=== PATIENT | male | born 1960 | race Caucasian/White ===

== ENCOUNTER 2017-01-29 10:18 | Observation (INO) | payer BC ==
[2017-01-29] MEDS ORDERED: NS 0.9% 1000 ML* 1,000 ML IV ONE (10:40)
[2017-01-29 11:05] LABS: Hematocrit 50 % (42-52); Hemoglobin 16.6 g/dl (14.0-18.0); Mean Corpuscular HGB Conc 34 g/dl (31-36); Mean Corpuscular Hemoglobin 32 pg (27-31); Mean Corpuscular Volume 94 fL (80-94); Mean Platelet Volume 9 um3 (7.4-10.4); Red Blood Count 5.25 10^6/ul (4.0-5.4); Red Cell Distribution Width 14 % (10.5-15); White Blood Count 7.2 10^3/ul (3.5-10.8)
[2017-01-29] MEDS ORDERED: Aspirin Low Dose CHEW TAB* 81 MG PO ONE (11:17)
[2017-01-29 11:22] LABS: ALT 31 U/L (7-52); AST 20 U/L (13-39); Albumin 4.2 g/dL (3.2-5.2); Alkaline Phosphatase 54 U/L (34-104); Anion Gap 5 mmol/L (2-11); BUN/Creatinine Ratio 14.7 (8-20); Blood Urea Nitrogen 17 mg/dL (6-24); C Reactive Protein < 1.00 mg/L (< 5.00); CO2 Carbon Dioxide 29 mmol/L (22-32); Calcium 9.8 mg/dL (8.6-10.3); Chloride 104 mmol/L (101-111); Creatine Kinase 85 U/L (10-223); EGFR African American 83.8 (>60); EGFR Non-African American 65.1 (>60); Globulin 3.2 g/dL (2-4); Glucose 96 mg/dL (70-100); Lipase 37 U/L (11.0-82.0); Magnesium 2.3 mg/dL (1.9-2.7); Potassium 4.6 mmol/L (3.5-5.0); Sodium 138 mmol/L (133-145); Total Protein 7.4 g/dL (6.4-8.9)
[2017-01-29 11:31] LABS: Troponin I 0.08 ng/mL (<0.04)
--- NOTE | 2017-01-29 11:42 | RAD ---
INDICATION: Tachycardia COMPARISON: April 24, 2016 TECHNIQUE: An AP portable view obtained at 1120 hours is submitted. FINDINGS: Bones/Soft Tissues: There are no acute bony findings. Cardiomediastinal: The cardiomediastinal silhouette is normal. Lungs: There are no infiltrates. Pleura: There are no pleural effusions. Other: None IMPRESSION: NO ACTIVE DISEASE.
[2017-01-29 12:37] LABS: Urine Bacteria Absent (Absent); Urine Bilirubin Negative (Negative); Urine Glucose Negative (Negative); Urine Nitrite Negative (Negative)
[2017-01-29] MEDS ORDERED: Acetaminophen TAB* 325 MG PO PRN (13:04)
[2017-01-29] MEDS ORDERED: Ondansetron INJ* 2 MG/ML VIAL IV PRN (13:04)
--- NOTE | 2017-01-29 13:59 | ED ---
Pasquale Mixon Billy, scribed for Washington Baron MD on 01/29/17 at 1108 . Palpitations / Dysrhythmia - HPI Summary HPI Summary: Patient is a 56 year-old male coming to [facility] for evaluation of palpitations this morning at 0900. He describes rapid, irregular heart rate. At the time, he said he felt incredibly fatigued with any simple exertion. He was also diaphoretic and anxious. Denies any dizziness or chest pain. However, he has had intermittent chest pressure in the last several days unrelated to his palpitations today. Patient reports a similar episode 2 days ago, at which time he felt lightheaded and dizzy. However, he states that he played table tennis last night for 2 hours without any symptoms. He denies any formal diagnosis of atrial fibrillation in the past. History of HTN for which he takes Metoprolol, as well as CAD and HLD. - History of Current Complaint Chief Complaint: EDDysrhythmPalp Time Seen by Provider: 01/29/17 10:40 Hx Obtained From: Patient Onset/Duration: Gradual Onset Timing: Constant Severity Initially: Moderate Severity Currently: Moderate Character: Fast, Irregular Aggravating: Exertion Alleviating: Nothing Associated Signs & Symptoms: Diaphoresis - Allergy/Home Medications Allergies/Adverse Reactions: Allergies Allergy/AdvReac Type Severity Reaction Status Date / Time No Known Allergies Allergy Verified 12/12/15 07:08 Home Medications: Home Medications Aspirin EC Low Dose* [Ecotrin EC Low Dose 81 MG*] 81 mg PO DAILY 01/29/17 [ History Confirmed 01/29/17] PMH/Surg Hx/FS Hx/Imm Hx Endocrine/Hematology History: Denies: Hx Diabetes Cardiovascular History: Reports: Hx Coronary Artery Disease, Hx Hypercholesterolemia - Controlled with medication., Hx Hypertension - ON MEDS Denies: Hx Pacemaker/ICD Respiratory History: Reports: Other Respiratory Problems/Disorders - SMOKER Sensory History: Denies: Hx Contacts or Glasses, Hx Hearing Aid Opthamlomology History: Denies: Hx Contacts or Glasses Psychiatric History: Reports: Hx Anxiety, Hx Depression Denies: Hx Panic Disorder - Surgical History Surgery Procedure, Year, and Place: TONSILECTOMY A CHILD,. [facility] HEART CATHERIZATION(NO STENTS), [facility] [place]. HEART CATHERIZATION (NO STENTS), [facility] Anesthesia Reactions: No - LOCAL WITH CATHERIZATIONS Infectious Disease History: Denies: Traveled Outside the [place] in Last 30 Days - Family History Family History: No family history of malignant hyperthermia or anesthesia reaction. - Social History Alcohol Use: Occasionally Substance Use Type: Reports: None Smoking Status (MU): Light Every Day Tobacco Smoker Type: Cigarettes Amount Used/How Often: 5-10 CIGARETTES PER DAY, FOR ABOUT 40 YEARS Length of Time of Smoking/Using Tobacco: 40 YEARS Have You Smoked in the Last Year: Yes Review of Systems Positive: Fatigue, Skin Diaphoresis Positive: Palpitations. Negative: Chest Pain Positive: Anxious All Other Systems Reviewed And Are Negative: Yes Physical Exam Triage Information Reviewed: Yes Vital Signs On Initial Exam: Initial Vitals Temp Pulse Resp BP Pulse Ox 97.8 F 45 20 129/104 99 01/29/17 10:22 01/29/17 10:22 01/29/17 10:22 01/29/17 10:22 01/29/17 10:22 Vital Signs Reviewed: Yes Appearance: Positive: Well-Appearing, No Pain Distress Skin: Positive: Warm, Skin Color Reflects Adequate Perfusion, Dry Head/Face: Positive: Normal Head/Face Inspection Eyes: Positive: EOMI, LAITH ENT: Positive: Normal ENT inspection Neck: Positive: Supple, Nontender Respiratory/Lung Sounds: Positive: Clear to Auscultation, Breath Sounds Present Cardiovascular: Positive: RRR - Sinus rhythm 68 bpm on exam. Abdomen Description: Positive: Nontender, Soft Bowel Sounds: Positive: Present Musculoskeletal: Positive: Normal, Strength/ROM Intact. Negative: Edema Left, Edema Right Neurological: Positive: Normal, Sensory/Motor Intact, Alert, Oriented to Person Place, Time Psychiatric: Positive: Normal, Affect/Mood Appropriate - Marianne Coma Scale Coma Scale Total: 15 Diagnostics - Vital Signs Vital Signs Temp Pulse Resp BP Pulse Ox 01/29/17 10:22 97.8 F 45 20 129/104 99 - Laboratory Lab Results: Lab Results 01/29/17 01/29/17 01/29/17 Range/Units 10:25 10:50 10:50 WBC 7.2 (3.5-10.8) 10^3/ul RBC 5.25 (4.0-5.4) 10^6/ul Hgb 16.6 (14.0-18.0) g/dl Hct 50 (42-52) % MCV 94 (80-94) fL MCH 32 H (27-31) pg MCHC 34 (31-36) g/dl RDW 14 (10.5-15) % Plt Count 186 (150-450) 10^3/ul MPV 9 (7.4-10.4) um3 Neut % (Auto) 40.7 (38-83) % Lymph % (Auto) 44.5 (25-47) % [place] % (Auto) 10.9 H (1-9) % Eos % (Auto) 3.1 (0-6) % Baso % (Auto) 0.8 (0-2) % Absolute Neuts (auto) 2.9 (1.5-7.7) 10^3/ul Absolute Lymphs (auto) 3.2 (1.0-4.8) 10^3/ul Absolute Monos (auto) 0.8 (0-0.8) 10^3/ul Absolute Eos (auto) 0.2 (0-0.6) 10^3/ul Absolute Basos (auto) 0.1 (0-0.2) 10^3/ul Absolute Nucleated RBC 0.01 10^3/ul Nucleated RBC % 0.1 INR (Anticoag Therapy) 0.86 L (0.89-1.11) APTT 26.7 (26.0-36.3) seconds D-Dimer, Quantitative < 200 (Less Than 230) ng/mL Sodium (133-145) mmol/L Potassium (3.5-5.0) mmol/L Chloride (101-111) mmol/L Carbon Dioxide (22-32) mmol/L Anion Gap (2-11) mmol/L BUN (6-24) mg/dL Creatinine (0.67-1.17) mg/dL Est GFR ( Amer) (>60) Est GFR (Non-Af Amer) (>60) BUN/Creatinine Ratio (8-20) Glucose (70-100) mg/dL Lactic Acid (0.5-2.0) mmol/L Calcium (8.6-10.3) mg/dL Magnesium (1.9-2.7) mg/dL Total Bilirubin (0.2-1.0) mg/dL AST (13-39) U/L ALT (7-52) U/L Alkaline Phosphatase (34-104) U/L Total Creatine Kinase (10-223) U/L CK-MB (CK-2) (0.6-6.3) ng/mL Troponin I (<0.04) ng/mL C-Reactive Protein (< 5.00) mg/L B-Natriuretic Peptide ( - 100) pg/mL Total Protein (6.4-8.9) g/dL Albumin (3.2-5.2) g/dL Globulin (2-4) g/dL Albumin/Globulin Ratio (1-3) Lipase (11.0-82.0) U/L TSH (0.34-5.60) mcIU/mL Urine Color Yellow Urine Appearance Clear Urine pH 6.0 (5-9) Ur Specific [place] 1.016 (1.010-1.030) Urine Protein Negative (Negative) Urine Ketones Negative (Negative) Urine Blood Negative (Negative) Urine Nitrate Negative (Negative) Urine Bilirubin Negative (Negative) Urine Urobilinogen Negative (Negative) Ur Leukocyte Esterase Trace H (Negative) Urine WBC (Auto) Trace(0-5/hpf) (Absent) Urine RBC (Auto) Trace(0-2/hpf) (Absent) Urine Bacteria Absent (Absent) Urine Glucose Negative (Negative) 01/29/17 01/29/17 01/29/17 Range/Units 10:50 10:50 10:50 WBC (3.5-10.8) 10^3/ul RBC (4.0-5.4) 10^6/ul Hgb (14.0-18.0) g/dl Hct (42-52) % MCV (80-94) fL MCH (27-31) pg MCHC (31-36) g/dl RDW (10.5-15) % Plt Count (150-450) 10^3/ul MPV (7.4-10.4) um3 Neut % (Auto) (38-83) % Lymph % (Auto) (25-47) % [place] % (Auto) (1-9) % Eos % (Auto) (0-6) % Baso % (Auto) (0-2) % Absolute Neuts (auto) (1.5-7.7) 10^3/ul Absolute Lymphs (auto) (1.0-4.8) 10^3/ul Absolute Monos (auto) (0-0.8) 10^3/ul Absolute Eos (auto) (0-0.6) 10^3/ul Absolute Basos (auto) (0-0.2) 10^3/ul Absolute Nucleated RBC 10^3/ul Nucleated RBC % INR (Anticoag Therapy) (0.89-1.11) APTT (26.0-36.3) seconds D-Dimer, Quantitative (Less Than 230) ng/mL Sodium 138 (133-145) mmol/L Potassium 4.6 (3.5-5.0) mmol/L Chloride 104 (101-111) mmol/L Carbon Dioxide 29 (22-32) mmol/L Anion Gap 5 (2-11) mmol/L BUN 17 (6-24) mg/dL Creatinine 1.16 (0.67-1.17) mg/dL Est GFR ( Amer) 83.8 (>60) Est GFR (Non-Af Amer) 65.1 (>60) BUN/Creatinine Ratio 14.7 (8-20) Glucose 96 (70-100) mg/dL Lactic Acid 0.9 (0.5-2.0) mmol/L Calcium 9.8 (8.6-10.3) mg/dL Magnesium 2.3 (1.9-2.7) mg/dL Total Bilirubin 0.50 (0.2-1.0) mg/dL AST 20 (13-39) U/L ALT 31 (7-52) U/L Alkaline Phosphatase 54 (34-104) U/L Total Creatine Kinase 85 (10-223) U/L CK-MB (CK-2) 1.6 (0.6-6.3) ng/mL Troponin I 0.08 H* (<0.04) ng/mL C-Reactive Protein < 1.00 (< 5.00) mg/L B-Natriuretic Peptide 107 H ( - 100) pg/mL Total Protein 7.4 (6.4-8.9) g/dL Albumin 4.2 (3.2-5.2) g/dL Globulin 3.2 (2-4) g/dL Albumin/Globulin Ratio 1.3 (1-3) Lipase 37 (11.0-82.0) U/L TSH 1.00 (0.34-5.60) mcIU/mL Urine Color Urine Appearance Urine pH (5-9) Ur Specific [place] (1.010-1.030) Urine Protein (Negative) Urine Ketones (Negative) Urine Blood (Negative) Urine Nitrate (Negative) Urine Bilirubin (Negative) Urine Urobilinogen (Negative) Ur Leukocyte Esterase (Negative) Urine WBC (Auto) (Absent) Urine RBC (Auto) (Absent) Urine Bacteria (Absent) Urine Glucose (Negative) Result Diagrams: 01/29/17 10:50 01/29/17 10:50 Lab Statement: Any lab studies that have been ordered have been reviewed, and results considered in the medical decision making process. - Radiology CXR Radiology Interpretation Completed By: Radiologist - See EMR and radiologist report. - EKG 1031 EKG Interpretation: rapid atrial fibrillation 132 bpm 1143 Cardiac Rate: Bradycardia - 53 bpm EKG Rhythm: Sinus Bradycardia EKG Interpretation: concave up ST elevation in V1 and V2, no reciprocal changes , no ectopy Course/Dx - Course Course Of Treatment: NO CRITICAL CARE TIME Assessment/Plan: WELL IN ED. ADMIT HOSPITALIST STABLE. - Diagnoses Provider Diagnoses: Rapid atrial fibrillation, Chest pain, Elevated troponin - Physician Notifications Discussed Care Of Patient With: Dr. Grayson (hospitalist) @ 1140: accepts admission. Discharge - Discharge Plan Condition: Stable Disposition: ADMITTED TO [facility] Referrals: Perfecto Cosme MD [Primary Care Provider] - The documentation as recorded by the Pasquale scanlon Billy accurately reflects the service I personally performed and the decisions made by me, Washington Baron MD.
[2017-01-29] MEDS: Heparin VIAL(*) 5000 UNITS/ML VIAL (FIVE THOUSAND) SUBCUT SCH ×2 (15:11→22:43)
--- NOTE | 2017-01-29 15:22 | ECHO ---
Patient: CHIQUI DEVI [facility] Rec#: [id number] : 1960 Date: 01/29/2017 Age: 56y Height: 185.42 cm / 73.0 in Weight: 93.89 kg / 206.9 lbs Sex: M BSA: 2.18 Room#: 440 Admit Date#: 01/29/2017 Type: Inpatient Referring: Romulo Mallory NP Reading: Trevin Fraser MD Meeting Manager: Lauren Smalls RDCS CC: Perfecto Cosme MD Transthoracic Echocardiogram Indication: A-fib BP: 136/81 HR: 61 Rhythm: NSR Findings History: HLD,smoker,HTN,new a-fib. Technical Comments: The study quality is good. Completed at 1500. Left Ventricle: The left ventricular chamber size is normal. Septal wall hypertrophy is observed.1.5 cm Global left ventricular wall motion and contractility are within normal limits. There is normal left ventricular systolic function. The estimated ejection fraction is 55-60%. Normal left ventricular diastolic filling is observed. Left Atrium: The left atrium is mildly dilated. Right Ventricle: The right ventricular cavity size is normal. The right ventricular global systolic function is normal. Right Atrium: The right atrial cavity size is normal. Aortic Valve: The aortic valve is trileaflet. There is no evidence of aortic regurgitation. There is no evidence of aortic stenosis. Mitral Valve: The mitral valve leaflets are mildly thickened. There is a trace of mitral regurgitation. There is no evidence of mitral stenosis. Tricuspid Valve: The tricuspid valve leaflets are normal. There is trace tricuspid regurgitation. No pulmonary hypertension is noted. There is no tricuspid stenosis. Pulmonic Valve: The pulmonic valve appears normal. There is no evidence of pulmonic regurgitation. There is no pulmonic stenosis. Pericardium: No pericardial fat pad is visualized. Aorta: There is no dilatation of the ascending aorta. There is no dilatation of the aortic arch. There is mild dilatation of the aortic root. Pulmonary Artery: The main pulmonary artery appears normal. Venous: The inferior vena cava appears normal in size. There is a greater than 50% respiratory change in the inferior vena cava dimension. Summary: There are no significant changes when compared to the previous study done on 04/03/11 Conclusions Global left ventricular wall motion and contractility are within normal limits. There is normal left ventricular systolic function. The estimated ejection fraction is 55-60%. Septal wall hypertrophy is observed.1.5 cm The right ventricular global systolic function is normal. There is no evidence of aortic regurgitation. There is no evidence of aortic stenosis. There is a trace of mitral regurgitation. There is trace tricuspid regurgitation. No pulmonary hypertension is noted. There are no significant changes when compared to the previous study done on 04/03/11 Measurements Name Value Normal Range RVIDd (AP) 2D 2.5 cm (0.9 - 2.6) RVDdMajor (2D) 3.5 cm (2.2 - 4.4) RAd ISD 4CH 5 cm (3.4 - 4.9) RA (A4C)W 3.7 cm (2.9 - 4.6) IVSd (2D) 1.5 cm (0.6 - 1) LVPWd (2D) 1 cm (0.6 - 1) LVIDd (2D) 4.9 cm (3.6 - 5.4) LVIDs (2D) 3.6 cm - LV FS (2D) 26 % (25 - 45) Aortic Annulus 2.1 cm (1.4 - 2.6) Ao root diameter (2D) 3.6 cm (2.1 - 3.5) Ascending Ao 3 cm (2.1 - 3.4) Aortic arch 2.3 cm (1.8 - 3.4) Descending Ao 0.4 cm - LA dimension (AP) 2D 4 cm (2.3 - 3.8) LAd ISD 4CH 5.7 cm (2.9 - 5.3) LA ISD 4CH W 4.9 cm (2.5 - 4.5) Name Value Normal Range LA ESV SP 4CH (A/L) 81 ml - LA ESV SP 2CH (A/L) 53 ml - LA ESV BP (A/L) 67 ml - LA ESV BP (A/L) index 30.64 ml/m2 - LA ESV SP 4CH (MOD) 74 ml - LA ESV SP 2CH (MOD) 50 ml - Name Value Normal Range MV E-wave Vmax 0.9 m/sec - MV deceleration time 188 msec - MV A-wave Vmax 0.8 m/sec - MV E:A ratio 1.19 ratio - LV septal e' Vmax 0.07 m/sec - LV lateral e' Vmax 0.11 m/sec - LV E:e' septal ratio 12.85 ratio - LV E:e' lateral ratio 8.18 ratio - Name Value Normal Range AV Vmax 1.2 m/sec - AV VTI 30.5 cm - AV peak gradient 5.45 mmHg - AV mean gradient 2.33 mmHg - LVOT Vmax 1 m/sec - LVOT VTI 20.6 cm - LVOT peak gradient 3.91 mmHg - LVOT mean gradient 1.51 mmHg - Name Value Normal Range TR Vmax 2 m/sec - TR peak gradient 16 mmHg - RAP 3 mmHg - RVSP 19 mmHg - IVC diameter 2.1 cm - Name Value Normal Range PV Vmax 0.9 m/sec - PV peak gradient 2.91 mmHg -
[2017-01-29] MEDS ORDERED: Atorvastatin* 10 MG TAB PO SCH ×2 (17:00→21:00)
--- NOTE | 2017-01-29 21:07 | HP ---
HISTORY AND PHYSICAL: DATE OF ADMISSION: 01/29/17 PRIMARY CARE PROVIDER: Dr. Cosme. ATTENDING PHYSICIAN WHILE IN THE HOSPITAL: Dr. Nohemi Winslow *(report dictated by Romulo Mallory NP). CHIEF COMPLAINT: Irregular pulse. HISTORY OF PRESENTING ILLNESS: Mr. Aggarwal is a 56-year-old male patient, who has history of hypertension, GERD, and anxiety. He comes in today stating that on Saturday, he noticed that while walking with his , he started having on his Fitbit, his pulse was erratic, it was up and down and it was as high as 140s. He felt palpitations. He felt flushed and he stopped doing what he was doing, heart rate went down to his normal range. He felt better and he states that he felt well. He denied having any chest pressure or discomfort. Today, he was sitting in the classroom and he started becoming sweaty. He had palpitations again, he checked his pulse, it was irregular. His Fitbit showed his pulse to elevated. He states that his resting pulse rate is right around 60 , he was concerned because it was getting as high as 80, so he was went to the nurse who auscultated and checked his pulse and noted that his heart rate was very irregular, so they sent him to the hospital to be evaluated. He denied having any chest pressure, heaviness, but he did state that he broke out into sweat and he was evaluated here in the ED and it was noted that the troponin was mildly elevated. He denied having any recent chills, fevers, no shortness of breath, no chest discomfort while taking a deep breath. No nausea, vomiting , diarrhea, and there has been no change in medications recently. Because of the elevated troponin and the fact that he has history of smoking, hyperlipidemia, and hypertension, we were asked to evaluate for admission. PAST MEDICAL HISTORY: Significant for: 1. Hyperlipidemia. 2. Hypertension. PAST SURGICAL HISTORY: He has had heart cath x2 now, most recently in 2008 per the patient. He said the coronaries were clean' we will try to get that report. MEDICATIONS: His home meds according to his recall include: 1. Toprol 25 mg daily. 2. Zocor 20 mg daily. 3. Aspirin 81 mg daily. 4. Omeprazole 1 tablet daily. 5. Klonopin 1 tablet daily as needed. ALLERGIES TO MEDICATIONS: Include no known drug allergies. FAMILY HISTORY: His mother had history of asthma, father at the age of 57 , possibly of an NE, he is unsure. SOCIAL HISTORY: She does smoke about half a pack a day. He has been smoking for about 40 years. He does drink 2 to 3 beers on a daily basis. Surrogate decision maker is his . REVIEW OF SYSTEMS: There is no documented fever. He denied having any significant weight change. There was no double vision. There was no ear discharge. Denies having any rhinorrhea. No sore throat. No thyroid enlargement. Denied having any chest pain. There was palpitation. There was no orthopnea, no nocturnal dyspnea. No abdominal pain. No nausea, no vomiting. No dysuria, no frequency. No loss of consciousness. No pruritus and no skin ulcerations. Review of 14 systems completed, all others were negative. PHYSICAL EXAMINATION GENERAL: At this time, Mr. Aggarwal is a 56-year-old male patient. He is sitting in the ER stretcher. He does not appear to be in any acute distress. VITAL SIGNS: Reveal blood pressure 136/81, pulse 53, respirations 16, O2 sat 100%, temperature 98.4. HEENT: Head: Atraumatic and normocephalic. Eyes: Sclerae anicteric, not pale. Throat: Oral mucosa appears to be moist. No oropharyngeal erythema. NECK: Supple. LUNGS: Clear to auscultation. No wheezes, rales, or rhonchi. HEART: Heart sounds S1, S2. Regular rate and rhythm. No murmurs, rubs, or gallops. ABDOMEN: Soft, flat, nontender. Bowel sounds present. EXTREMITIES: Pulses 2+ throughout. No peripheral edema. He is able to move all 4 extremities with 5/5 strength. NEUROLOGIC: The patient is awake, alert, and oriented x3. Tongue midline. Enrollment Eligibility Representative were equal. No gross focal deficits. SKIN: Grossly intact. DIAGNOSTIC STUDIES/LAB DATA: Labs today revealed WBC of 7.2, RBC 5.25, hemoglobin 16.6, hematocrit 50, and platelet count of 186. INR was 0.86, PTT 26.7, D-dimer less than 200. Sodium was 138, potassium 4.6, chloride of 104, bicarb 29, BUN 17, creatinine 1.16, glucose 96, lactate 0.9, calcium 9.8, mag 2.3. Total bili 0.5, AST 20, ALT 31, alk phos 54. CK 85, CK-MB 1.6. Troponin 0.08. CRP less than 1. BNP 107. TSH normal at 1. He did have two EKGs here in the ER. Most recent EKG showed a sinus bradycardia , rate of 53, no ST elevations or T-wave inversions were noted. First EKG did show atrial fibrillation, rate of 132, no ST elevations or T-wave inversions were noted. Chest x-ray showed no active disease. Old medical records were reviewed. ASSESSMENT AND PLAN: Mr. Aggarwal is a 56-year-old male patient coming into the ER today with complaints of palpitations and irregular heartbeat. On evaluation , he was found to be in atrial fibrillation with rapid ventricular response. In addition to this, found to have an elevated troponin. He will be admitted under observation status for: 1. Atrial fibrillation with rapid ventricular response. His CHADS score is 1, so I think aspirin is appropriate. He is in sinus rhythm now. I did touch base with Dr. Fraser. We will get an echo. The other concern that I am seeing here is that he does have an elevated troponin at 0.08. I would like to trend these. He never had any chest pain but he certainly has risk factors for coronary artery disease. If his troponins go up, I would probably put him on heparin. Continue the beta hemal, he is already on statin, and again Dr. Fraser will be evaluating. I left him n.p.o. after midnight, because if the trops go up, we may need to consider intervention and heart cath possibly and we also should consider that if they do go down or stay stable, possible stress test. So, I left him n.p.o. to help us to evaluate what further testing we are going to perform. 2. Hyperlipidemia. Continue statin therapy. I will check lipid panel. 3. Hypertension. Continue meds as prescribed. 4. DVT prophylaxis. I will place him on heparin subcu. 5. Code status. Full code. 6. Fluids, electrolytes, and nutrition. He can have a heart-healthy diet and he will be n.p.o. after midnight. TIME SPENT: On this admission was 60 minutes, greater than half the time was spent [id number] with the patient, obtaining my history of physical; the other half time was spent going over the plan of care with the patient and implementing plan of care. I did discuss the plan of care with my attending, Dr. Winslow; she is in agreement. ROMULO MALLORY NP CC: Dr. Cosme* [id number]/[facility] #: [id number] JESSICA
[2017-01-29] MEDS ORDERED: SIMVASTATIN 20 MG PO SCH (22:00)
--- NOTE | 2017-01-29 22:14 | CONS ---
CARDIOLOGY CONSULTATION: DATE OF CONSULT: 01/29/17 INDICATION FOR CONSULTATION: Atrial fibrillation. HISTORY OF PRESENT ILLNESS: The patient is a 56-year-old gentleman with a history of tobacco and alcohol use who came to the emergency room because of palpitations, heart racing, and chest pain. The patient states that approximately a week ago, he had an episode of irregular heart beat and chest discomfort that lasted for approximately half an hour and then resolved on its own. This past Saturday, which is 2 days ago, he had episode of irregular heart beat. He did have an exercise watch on that demonstrated an irregular heart rhythm that fluctuated from 100 to 130 beats a minute. He also had some mild chest pain associated with that episode, it lasted for a couple of hours and then resolved on its own. The patient went to see his primary care physician on Saturday. At that time, his heart rate and blood pressure were normal. 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 He went to see the nurse and his heart rate was registered at 120 beats a minute and was brought to the emergency room. On arrival to the emergency room, he was in atrial fibrillation with a rapid ventricular response. The patient later converted to normal sinus rhythm on his own and his symptoms resolved. In speaking with the patient, he denies any chest pain or shortness of breath. When he was exercising recently, he denied any orthopnea. He denied any lightheadedness, dizziness, or syncope. PAST MEDICAL HISTORY: Significant for: 1. Atypical chest pain. 2. Hypertension. 3. Hypercholesterolemia. The patient did have a cardiac catheterization in 2005 and in 2010 which showed no significant coronary artery disease. OUTPATIENT MEDICATIONS: 1. Simvastatin 20 mg a day. 2. Metoprolol 25 mg a day. 3. Albuterol inhaler. 4. Aspirin 81 mg a day. 5. Omeprazole 20 mg a day. ALLERGIES: No known drug allergies. FAMILY HISTORY: No family history of early coronary artery disease or cardiac arrhythmias. SOCIAL HISTORY: He is . He works as a teacher. He smokes a pack of cigarettes a day. He drinks alcohol almost daily. REVIEW OF SYSTEMS: Negative for fevers and chills. Negative for changes in bowel or bladder habits. Negative for changes in weight. PHYSICAL EXAM: Height is 6 feet 1 inches, weight 207 pounds. Heart rate 53, blood pressure 136/81, respiratory rate is 18, temperature 98.4. Sclerae anicteric. Oropharynx is pink without erythema. Carotids are 2+ without bruits. JVD is normal. Thyroid is normal. Cardiac Exam: S1, S2 without any murmurs, rubs, or gallops. Lungs are clear to auscultation bilaterally. There is no dullness to percussion. Abdomen is soft, nontender, nondistended with normoactive bowel sounds. Extremities show no edema. He has 2+ pulses throughout. The patient is awake, alert, and oriented. He moves all 4 extremities equally. DIAGNOSTIC STUDIES/LAB DATA: EKG in the emergency room demonstrated atrial fibrillation with rapid ventricular response. EKG an hour later demonstrates sinus bradycardia at 53 beats per minute. Otherwise unremarkable. Laboratory studies: CBC within normal limits. Chemistry is within normal limits. BUN 17, creatinine 1.16, troponin 0.08, BNP is 107, TSH is 1. D-dimer is less than 200. IMPRESSION: This is a 56-year-old gentleman with a history of tobacco use who came to the emergency room because of episodes of palpitations and shortness of breath. He was found to be in atrial fibrillation with rapid ventricular response, but converted to normal sinus rhythm on his own. In taking his history, he appears to have had 3 episodes of atrial fibrillation over the past 5 days, all of which were significantly symptomatic. The patient's echocardiogram shows normal LV size and systolic function and no significant valvular abnormalities. For now, my recommendation is to continue to rule out the patient for his abnormal troponins. In the morning, the patient will undergo an exercise nuclear stress test. It is my recommendation the patient be started on flecainide 50 mg twice a day for suppression of his atrial fibrillation. The patient will continue on his low-dose beta blockers. At this point, I do not think the patient needs anticoagulation. The patient will be followed up as an outpatient. CC: Dr. Rosales; Dr. Cosme * [id number]/[facility] #: [id number] [facility]
[2017-01-30 05:38] LABS: Hematocrit 42 % (42-52); Hemoglobin 14.2 g/dl (14.0-18.0); Mean Corpuscular HGB Conc 34 g/dl (31-36); Mean Corpuscular Hemoglobin 32 pg (27-31); Mean Corpuscular Volume 95 fL (80-94); Mean Platelet Volume 10 um3 (7.4-10.4); Red Blood Count 4.44 10^6/ul (4.0-5.4); Red Cell Distribution Width 14 % (10.5-15)
[2017-01-30 05:59] LABS: BUN/Creatinine Ratio 18.3 (8-20); Calcium 8.9 mg/dL (8.6-10.3); EGFR African American 108.1 (>60); HDL Cholesterol 42.1 mg/dL; Potassium 4.3 mmol/L (3.5-5.0)
[2017-01-30] MEDS: Heparin VIAL(*) 5000 UNITS/ML VIAL (FIVE THOUSAND) SUBCUT SCH (06:48)
[2017-01-30] MEDS ORDERED: Flecainide TAB* 100 MG PO SCH (07:00)
[2017-01-30] MEDS ORDERED: Aspirin Low Dose CHEW TAB* 81 MG PO SCH (09:00)
[2017-01-30] MEDS ORDERED: METOPROLOL SUCCINATE 50 MG PO SCH (09:00)
[2017-01-30] MEDS ORDERED: Omeprazole CAP* 20 MG PO SCH (09:00)
[2017-01-30 12:44] VITALS: BP 138/83
--- NOTE | 2017-01-30 13:50 | PN ---
Subjective Date of Service: 01/30/17 - CC: afib, dizzy, ESCOBAR. Interval History: Feels well currently, with normal rhythm resolution of weakness, palpitations and CP. Medications Active Medications: Acetaminophen (Tylenol Tab*) 650 mg PO Q4H PRN PRN Reason: FEVER/PAIN Aspirin (Aspirin Low Dose Tab*) 81 mg PO DAILY [facility] Last Admin: 01/30/17 07:51 Dose: 81 mg Flecainide Acetate (Tambocor Tab*) 50 mg PO Q12H [facility] Last Admin: 01/30/17 07:51 Dose: 50 mg Heparin Sodium (Porcine) (Heparin Vial(*)) 5,000 units SUBCUT Q8HR [facility] Last Admin: 01/30/17 06:48 Dose: Not Given Metoprolol Succinate (Toprol Xl Tab*) 25 mg PO DAILY [facility] Omeprazole (Prilosec Cap*) 20 mg PO 0730 [facility] Last Admin: 01/30/17 07:51 Dose: 20 mg Ondansetron HCl (Zofran Inj*) 4 mg IV Q6H PRN PRN Reason: NAUSEA Simvastatin (Zocor(Nf)) 20 mg PO 2100 [facility] Last Admin: 01/29/17 22:43 Dose: 20 mg Objective Vital Signs: Temp Pulse Resp BP Pulse Ox 97.9 F 50 16 138/83 96 01/30/17 11:15 01/30/17 11:15 01/30/17 11:15 01/30/17 11:15 01/30/17 11:15 Oxygen Devices in Use Now: None Appearance: tall fit appearing older gentleman, mild limp, in no acute distress Ears/Nose/Mouth/Throat: Mucous Membranes Moist Neck: NL Appearance and Movements; NL JVP Respiratory: Symmetrical Chest Expansion and Respiratory Effort, Clear to Auscultation Cardiovascular: NL Sounds; No Murmurs; No JVD, RRR Abdominal: NL Sounds; No Tenderness; No Distention, No Hepatosplenomegaly Extremities: No Edema, No Clubbing, Cyanosis Skin: No Rash or Ulcers Neurological: Alert and Oriented x 3, NL Sensation Lines/Tubes/Other Access: Clean, Dry and Intact Peripheral IV Laboratory Results: 01/30/17 04:54 01/30/17 04:54 INR (Anticoag Therapy) 0.86 (0.89-1.11) L 01/30/17 04:54 APTT 26.7 seconds (26.0-36.3) 01/29/17 10:50 Total Bilirubin 0.50 mg/dL (0.2-1.0) 01/29/17 10:50 AST 20 U/L (13-39) 01/29/17 10:50 ALT 31 U/L (7-52) 01/29/17 10:50 Alkaline Phosphatase 54 U/L (34-104) 01/29/17 10:50 CK-MB (CK-2) 1.6 ng/mL (0.6-6.3) 01/29/17 10:50 B-Natriuretic Peptide 107 pg/mL (-100) H 01/29/17 10:50 Total Protein 7.4 g/dL (6.4-8.9) 01/29/17 10:50 Albumin 4.2 g/dL (3.2-5.2) 01/29/17 10:50 Globulin 3.2 g/dL (2-4) 01/29/17 10:50 Albumin/Globulin Ratio 1.3 (1-3) 01/29/17 10:50 Triglycerides 116 mg/dL 01/30/17 04:54 Cholesterol 154 mg/dL 01/30/17 04:54 LDL Cholesterol 89 mg/dL 01/30/17 04:54 HDL Cholesterol 42.1 mg/dL 01/30/17 04:54 TSH 1.00 mcIU/mL (0.34-5.60) 01/29/17 10:50 01/29/17 01/29/17 15:39 17:25 Troponin I 0.07 H* 0.08 H* Diagnostic Imaging: Ex myoview: no ischemia, EF 56%. Exercise ability limited by dyspnea and knee. EKG Data: 56 up male with paroxysmal atrial fibrillation, was smoking, on flecainide now and staying in sinus rhythm. Stress test reassuring wrt candidacy for flecainide. Assessment/Plan Points of Discussion: Atrial fibrillation: Continuation of Flecainide and beta hemal. Smoking cessation discussed. Needs to avoid alcohol. CP and borderline troponins: Likely related to rhythm, stress test does not demonstrate evidence of significant underlying CAD. Continue with risk factor modification: d/c smoking, good BP and lipid control. The patient can f/u with Dr. Rosales as an outpatient.
--- NOTE | 2017-01-30 14:31 | RAD ---
INDICATION: Atrial fibrillation. Palpitations. COMPARISON: None TECHNIQUE: A single day SPECT protocol was utilized. Rest images were acquired following the intravenous injection of 10.0 millicuries of technetium 99m tetrofosmin. Exercise stress images were acquired following the intravenous administration of 25.7 millicuries of technetium 99m tetrofosmin. The patient was exercised to a peak heart rate of 148 which is 90% of age predicted maximum. FINDINGS: There are no defects of the stress-induced or fixed nature. The cardiac chamber size is mildly enlarged. There are no wall motion abnormalities. The ejection fraction is calculated at the lower range of normal measuring 56% during stress. IMPRESSION: NO STRESS-INDUCED OR FIXED DEFECTS. MILDLY PROMINENT CHAMBER SIZE WITH EJECTION FRACTION AT THE LOWER RANGE OF NORMAL. ASSESSMENT: LOW-RISK Based on imaging criteria from ACC/AHA 2002 Guideline Update for the Management of Patients With Chronic Stable Angina Table 23. Noninvasive Risk Stratification.
--- NOTE | 2017-01-30 15:14 | DCNOTE ---
Patient seen in AM and again in the afternoon. No recurrence of symptoms, no chest pain, SOB. Feeling well. All questions answered. On exam, RRR, s1 and s2 present, no m/g/r, lungs with some mild expiratory wheezing, no LE edema Stress test low risk. Discharge home on Flecainide. Will need f/u with PCP and Cardiology.
[2017-01-31] MEDS ORDERED: METOPROLOL SUCCINATE 50 MG PO SCH (09:00)
--- NOTE | 2017-01-31 15:05 | DS ---
CC: Dr. Cosme; Dr. Trevin Fraser, Cardiology DISCHARGE SUMMARY: DATE OF ADMISSION: 01/29/17 DATE OF DISCHARGE: 01/30/17 PRIMARY CARE PHYSICIAN: Dr. Cosme. PRINCIPAL DISCHARGE DIAGNOSIS: Atrial fibrillation. SECONDARY DIAGNOSES: 1. Hypertension. 2. Hyperlipidemia. DISCHARGE MEDICATION REGIMEN: 1. Flecainide 50 mg by mouth every 12 hours. 2. Omeprazole 20 mg by mouth daily. 3. Simvastatin 20 mg by mouth at bedtime. 4. Albuterol 2 puffs inhaled every 4 hours as needed for shortness of breath or wheezing. 5. Ibuprofen 600 mg by mouth every 8 hours as needed for pain. 6. Aspirin 81 mg by mouth daily. 7. Toprol 50 mg by mouth daily. STUDIES DONE DURING HOSPITALIZATION: 1. Chest x-ray, impression: No active disease. 2. Transthoracic echocardiogram, conclusion: Global left ventricular wall motion contractility wit hin normal limits. There is normal left ventricular systolic function. The estimated ejection frac tion is 55% to 60%, septal wall hypertrophy is observed 1.5 cm. The right ventricular global systol ic function is normal. There is no evidence of aortic regurgitation. There is no evidence of aortic stenosis. There is trace mitral regurgitation. There is trace tricuspid regurgitation. No pulmon mk hypertension is noted. There are no significant changes when compared to the previous study ryan patiño on 04/03/11. 3. Nuclear cardiac stress test, impression: No stress induced or fixed defects. Mildly prominent c hamber size with ejection fraction at the low range of normal. Assessment: Low risk. CONSULTANTS DURING HOSPITALIZATION: Dr. Trevin Fraser, Cardiology. HISTORY OF PRESENT ILLNESS AND HOSPITAL SUMMARY: Please see the full history and physical by Romulo elaine NP, for full details. Briefly, Mr. Aggarwal is a 56-year- old man with a past medical histor y as above, who presented to the hospital with episodic palpitations that had been going on for the past few days. 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 She sent him to the hospital. He was noted to be in atrial fib without ziyad tricular response. The patient was evaluated by Dr. Fraser and by that time, he had converted back t o normal sinus rhythm. Dr. Fraser decided to start the patient on flecainide to try to prevent furth er episodes of atrial fibrillation. He did not feel that the patient required any anticoagulation. The patient will continue on his daily baby aspirin. The patient did have mildly elevated troponin that peaked at 0.08. An echocardiogram was done that was relatively unremarkable. The patient underwent a nuclear cardiac stress test that was also unre markable. The patient did not have any further episodes of atrial fibrillation here in the hospital . He will be discharged home on flecainide in addition to his home medications. I have instructed him to try to cut back if not stop alcohol and tobacco use and try to avoid caffeinated beverages. The patient will need to follow up with his PCP as well as with Dr. Fraser as an outpatient. TIME SPENT: Total time spent on this discharge 40 minutes. This is a summary of the hospitalization. Please see the full medical record for further details. [id number]/[facility] #: [id number]
== END 2017-01-30 15:56 | disposition home or self-care (01) ==
LOC: ED 10:18 → MEDTELE 11:42
PROVIDERS: ADMIT Internal Medicine; ATTEND Hospitalist
DX: I48.91 Unspecified atrial fibrillation (principal); R53.1 Weakness; R07.9 Chest pain, unspecified; I10 Essential (primary) hypertension; E78.5 Hyperlipidemia, unspecified; I25.10 Atherosclerotic heart disease of native coronary artery without angina pectoris; Z79.82 Long term (current) use of aspirin; Z79.899 Other long term (current) drug therapy; F17.210 Nicotine dependence, cigarettes, uncomplicated
CPT/HCPCS: 36415; 71010; 78452; 80048; 80053; 80061; 81003; 81015; 82550; 82553; 83036; 83605; 83690; 83735; 83880; 84443; 84484; 85025; 85379; 85610; 85730; 86140; 87086; 93005; 93017; 93306; 99283; 99406; A9270-GY; A9502; G0378; J1644

== ENCOUNTER 2017-05-22 09:30 | Emergency (ER) | payer BC ==
[2017-05-22 09:47] VITALS: BP 146/87
--- NOTE | 2017-05-22 10:13 | RAD ---
HISTORY: Right wrist and forearm trauma COMPARISONS: None VIEWS: 5, Frontal, lateral, and oblique views of the right wrist and frontal and lateral views of the right forearm FINDINGS: BONE DENSITY: Normal. BONES: There is a small bone fragment along the dorsal aspect of the carpus consistent with an avulsion fracture, degenerative site is unclear. 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 SOFT TISSUES: Unremarkable. OTHER FINDINGS: None. IMPRESSION: SMALL BONE FRAGMENT ALONG THE DORSAL ASPECT OF THE WRIST CONSISTENT WITH AVULSION FRACTURE. NO ACUTE OSSEOUS INJURY TO THE RIGHT FOREARM
--- NOTE | 2017-05-22 10:52 | UC ---
deonna Mixon Timothy, scribed for Mariann Hernandez MD on 05/22/17 at 0953 . Upper Extremity HPI - HPI Summary HPI Summary: Jeet Aggarwal is a 57 yo male presenting to [facility] with 7/10 sharp, aching pain and swelling in his right wrist S/P slipping and falling on his right wrist yesterday. He notes limited ROM, and that the pain radiates up his right arm to his shoulder. He has full ROM of his fingers. He is ambidextrous. He denies any pain directly in his elbow or shoulder. He self-medicated with narcotics last night with no relief. His MHx includes cardia arrythmia, angina, CAD, cardiac catheterization, HLD, HTN, tobacco use. Pt medication list reviewed this visit. - History of Current Complaint Stated Complaint: WRIST INJURY Time Seen by Provider: 05/22/17 10:33 Hx Obtained From: Patient Onset/Duration: Sudden Onset, Lasting Hours, Still Present Severity Initially: Moderate Severity Currently: Moderate Pain Intensity: 7 Pain Scale Used: 0-10 Numeric Location Of Pain: Is Discrete @ - right wrist, Radiates To - right shoulder Character: Sharp, Aching Associated Signs And Symptoms: Positive: Swelling - Allergies/Home Medications Allergies/Adverse Reactions: Allergies Allergy/AdvReac Type Severity Reaction Status Date / Time No Known Allergies Allergy Verified 05/22/17 09:39 Home Medications: Home Medications Pain Medication 05/22/17 [History] PMH/Surg Hx/FS Hx/Imm Hx Cardiovascular History: Cardiac Disease, Hypertension - Surgical History Surgical History: Yes Surgery Procedure, Year, and Place: TONSILECTOMY A CHILD,. [facility] HEART CATHERIZATION(NO STENTS)[facility] HEART CATHERIZATION (NO STENTS)[facility] - Family History Known Family History: Positive: Cardiac Disease Family History: No family history of malignant hyperthermia or anesthesia reaction. - Social History Alcohol Use: Rare Substance Use Type: None Smoking Status (MU): Light Every Day Tobacco Smoker Type: Cigarettes Amount Used/How Often: 5-6 Length of Time of Smoking/Using Tobacco: 40 YEARS Have You Smoked in the Last Year: Yes Household Exposure Type: Cigarettes Cessation Counseling: Patient Advised to Stop Review of Systems Constitutional: Negative Skin: Negative Eyes: Negative ENT: Negative Respiratory: Negative Cardiovascular: Negative Gastrointestinal: Negative Genitourinary: Negative Motor: Negative Neurovascular: Negative Musculoskeletal: Other: - right wrist pain and swelling, radiates to right shoulder Neurological: Negative Psychological: Negative All Other Systems Reviewed And Are Negative: Yes Physical Exam Triage Information Reviewed: Yes Vital Signs: Initial Vital Signs Temp 97.6 F 05/22/17 09:41 Pulse 65 05/22/17 09:41 Resp 16 05/22/17 09:41 BP 146/87 05/22/17 09:41 Pulse Ox 99 05/22/17 09:41 Vital Signs Reviewed: Yes Procedures - Procedure Summary Procedure Summary: Splint was applied to Pt right hand/wrist with no complications. Pt tolerated procedure well. - Splinting Location: R hand/wrist Hand-Made Type: orthoglass Splint: volar - short arm Pre-Proc Neuro Vasc Exam: normal Post-Proc Neuro Vasc Exam: normal, unchanged from pre-exam Diagnostics - Radiology R wrist XR Xray Interpretation: Positive (See Comments) - IMPRESSION: SMALL BONE FRAGMENT ALONG THE DORSAL ASPECT OF THE WRIST CONSISTENT WITH AVULSION FRACTURE. NO ACUTE OSSEOUS INJURY TO THE RIGHT FOREARM Radiology Interpretation Completed By: Radiologist R forearm XR Xray Interpretation: Positive (See Comments) - IMPRESSION: SMALL BONE FRAGMENT ALONG THE DORSAL ASPECT OF THE WRIST CONSISTENT WITH AVULSION FRACTURE. NO ACUTE OSSEOUS INJURY TO THE RIGHT FOREARM Radiology Interpretation Completed By: Radiologist Re-Evaluation - Re-Evaluation First Eval Re-Evaluation Time: 10:45 Change: Unchanged Comment: Splint was applied to Pt right hand/wrist Upper Extremity Course/Dx - Course Course Of Treatment: Jeet Aggarwal is a 57 yo male presenting to [facility] with 7/ 10 right wrist pain and swelling S/P falling on it yesterday; pain radiates up right shoulder. Pt medication list reviewed this visit. Her R wrist and forearm XR's suggests a small bone fragment along the dorsal aspect of the wrist consistent with avulsion fracture, with no acute osseus injury to the right forearm. After clinical examination and review of his imaging study results, as well as application of his splint, he will be discharged home with right hand avulsion fracture and appropriate instructions and follow up. - Differential Dx/Diagnosis Differential Diagnosis/HQI/PQRI: Fracture (Closed), Strain, Sprain Provider Diagnoses: R hand avulsion fracture Discharge - Discharge Plan Condition: Stable Disposition: HOME Patient Education Materials: Hand Fracture (ED), Avulsion Fracture (ED) Referrals: Perfecto Cosme MD [Primary Care Provider] - 2 Days Randee Garcia MD [Medical Doctor] - As Soon As Possible Additional Instructions: Wear splint until you are seen by orthopedics in follow-up. Dr. Garcia is the orthopedic sheet music salesperson today. wear sling for comfort Apply ice (wrapped in a towel) 20 minute at a time, 2-3 times a day Elevate your arm to help with swelling and pain Okay to alternate ibuprofen (Advil, motrin) and tylenol every 3 hours for pain. Take with food. Do NOT Take for more than 4-5 days Please follow up with your primary care physician and the orthopedist (DR. Garcia ) provided regarding your visit to urgent care today. Return to urgent care or the emergency department with any new or recurring symptoms. The documentation as recorded by the deonna scanlon Timothy accurately reflects the service I personally performed and the decisions made by me, Mariann Hernandez MD.
== END 2017-05-22 10:55 | disposition home or self-care (01) ==
LOC: UCEAST 09:30
DX: Z72.0 Tobacco use (principal); S62.101A Fracture of unspecified carpal bone, right wrist, initial encounter for closed fracture; W01.0XXA Fall on same level from slipping, tripping and stumbling without subsequent striking against object, initial encounter; Y93.9 Activity, unspecified; Y92.9 Unspecified place or not applicable; Y99.9 Unspecified external cause status; I49.9 Cardiac arrhythmia, unspecified; I20.9 Angina pectoris, unspecified; I10 Essential (primary) hypertension; I25.10 Atherosclerotic heart disease of native coronary artery without angina pectoris; E78.5 Hyperlipidemia, unspecified
CPT/HCPCS: 99212; G0463

== ENCOUNTER 2018-10-02 12:06 | Emergency (ER) | payer BC ==
--- OUTSIDE RECORDS SUMMARY | 2018-10-02 12:49 | XMS REPORT ---
:1960 External Reference #:[id number] Author Organization [facility] Address [address] [place] [address] Phone [phone] Care Team Providers Name Role Phone Perfecto Cosme Care Team Information Entry Level Software Engineer Unavailable Perfecto Cosme Primary Care Physician Unavailable Payers Type Date Identification Numbers Payment Provider Subscriber Commercial Effective: Policy Number: BC/BS Of [place] Reeves 2017 [id number] PayID: [id number] [address] [address] [place] [address] Medigap Part B Effective: Policy Number: BC/BS Of [place] Reeves 2002 [id number] Expires: 2010 Group Number: [id number] [facility] [id number] PayID: [id number] [place] [address] Problems Date Description Provider Status Onset: 06/18/2007 Benign essential hypertension Perfecto Cosme M.D. Active Onset: 06/18/2007 Hyperlipidemia Perfecto Cosme M.D. Active Onset: 06/18/2007 Disorder of cardiovascular system Perfecto Cosme M.D. Active Onset: 06/08/2010 Anxiety state Perfecto Cosme M.D. Active Onset: 11/07/2011 Acute bronchitis Cezar Sandhu M.D. Active Onset: 11/23/2011 Chest pain Perfecto Cosme M.D. Active Onset: 11/23/2011 Acute sinusitis Perfecto Cosme M.D. Active Onset: 08/08/2012 Acute upper respiratory infection Perfecto Cosme M.D. Active Onset: 08/08/2012 Inflammatory polyarthropathy Perfecto Cosme M.D. Active Onset: 10/06/2012 Acute sinusitis Perfecto Cosme M.D. Active Onset: 11/10/2012 Disorder of skin AND/OR subcutaneous Perfecto Cosme M.D. Active tissue Onset: 02/10/2013 Low back pain Perfecto Cosme M.D. Active Onset: 02/10/2013 Orchitis and epididymitis Perfecto Cosme M.D. Active Onset: 08/31/2013 Liver function tests abnormal Perfecto Cosme M.D. Active Onset: 08/31/2013 Arthropathy of joint of hand Perfecto Cosme M.D. Active Onset: 10/27/2015 Essential hypertension Perfecto Cosme M.D. Active Onset: 10/27/2015 Knee pain Perfecto Cosme M.D. Active Onset: 11/25/2015 Benign prostatic hypertrophy without Perfecto Cosme M.D. Active outflow obstruction Onset: 05/04/2016 Gastroesophageal reflux disease Perfecto Cosme M.D. Active Onset: 09/17/2016 Dizziness and giddiness Perfecto Cosme M.D. Active Onset: 01/28/2017 Tobacco user Perfecto Cosme M.D. Active Onset: 02/04/2017 Paroxysmal atrial fibrillation Perfecto Cosme M.D. Active Onset: 06/27/2018 Eruption Perfecto Cosme M.D. Active Family History Date Family Member(s) Problem(s) Comments Father due to [place] () Father age 56 mi Mother Breast Cancer Mother Asthma Mother Chronic Obstructive Pulmonary Disease (COPD) Social History Type Date Description Comments Marital Status Patient is Living Situation Lives with spouse Diet Diet is healthy and well balanced Cigarette Use Light tobacco smoker (10 or fewer cigarettes/day) ETOH Use Consumes 2 beers per day Recreational Drug Use Denies Drug Use Smoking Patient is a current smoker, smokes every day Exercise Type/Frequency Current Exercises regularly Allergies, Adverse Reactions, Alerts Date Description Reaction Status Severity Comments 08/08/2011 NKDA active 02/08/2006 Positive PPD active Medications Medication Date Status Form Strength Qnty SIG Indications Ordering Provider Indapamide 09/30 Active Tablets 1.25mg 30tabs 1 by I10 Flor Ludwig /2017 mouth Gareth, every day [employer] Symbicort 11/20 Active Aerosol 160-4.5mc 6gm 1 puff J11.1 Flor Ludwig /2017 g/Act inhaled Gareth, twice [employer] daily Acetaminophen- 11/20 Active Tablets 300-30mg 20tabs take one J11.1 Flor Ludwig Codeine #3 /2017 by mouth Gareth, every 6 [employer] hours as needed for cough. may take 2 as one dose at bedtime. Omeprazole 04/24 Active Capsules 20mg 30caps 1 by R07.89 Perfecto Tan /2015 DR sebastian Cosme, every day M.D. for stomach as Needed Nitrostat 03/17 Active Tablets 0.4mg 25tabs 1 sl as I10 Cezar Pritchard Sub needed, Phoebe, repeat M.D. every 5 minutes up to three tabs, call 911 Zocor 03/17 Active Tablets 20mg 30tabs take one E78.4 Perfecto Tan tablet by Ba, mouth M.D. once daily as directed mdd 1 MDD 1 Ventolin HFA 11/28 Active Aerosol 108(90Bas 18units 2 puffs Flor Ludwig /2010 e) every 4 Gareth, mcg/Act hours as [employer] needed Asa 06/28 Active 81mg 1 po qd /2008 [facility] Ibuprofen 03/10 Active Tablets 600mg 90tabs 1 by Perfecto Tan mouth Ba, three M.D. times a day with food as needed for pain Toprol XL 10/04 Active Tablets 50mg 30tabs take one I10 Perfecto Tan /2006 ER 24HR tablet by Ba, mouth M.D. once daily as directed Klonopin Active Tablets 0.5mg 60tabs 1 by Perfecto T. / mouth Ba, twice a M.D. day as needed anxiety Azithromycin 01/22 Hx Tablets 250mg 6tabs take two J20.9 Flor Ludwig /2017 by sebastian Servin, - as first [employer] 03/04 dose, /2017 then take one by mouth daily until gone Oseltamivir 11/20 Hx Capsules 75mg 10caps take one J11.1 Flor Ludwig Phosphate /2017 by mouth Gareth, - twice [employer] 01/21 daily /2017 Levofloxacin 09/12 Hx Tablets 500mg 10tabs 1 by J20.9 Perfecto T. /2016 mouth Midura, - every day M.D. 10/08 Amoxicillin/Cl 08/12 Hx Tablets 875-125mg 20tabs 1 twice a J01.80 Perfecto Britney avulanate /2016 day w/ Midura, Potassium - food. M.D. 08/29 Flecainide 01/29 Hx Tablets 50mg take one Unknown Acetate tablet by - mouth at 05/28 bedtime Cheratussin ac 11/01 Hx Syrup 100-10mg/ 236ml 1-2 R05 Tiffany 5ML teaspoon Kiley, - by mouth [employer] 01/28 night at bedtime as needed cough Tamiflu 12/30 Hx Capsules 75mg 10caps use twice Cezar J. a day x 5 Breiman, - days M.D. 04/24 Doxycycline 05/04 Hx Tablets 100mg 2tabs 2 po once 916.4 Dana Rush /2014 Cassie, - [employer] 10/27 Cheratussin ac 12/23 Hx Syrup 100-10mg/ 120ml 1-2 Perfecto T. /2014 5ML teaspoon Midura, - every 4 M.D. 07/08 hours needed Levofloxacin 08/02 Hx Tablets 500mg 10tabs 1 by 461.8 Perfecto Short. /2013 mouth Midura, - every day M.D. 12/23 Azithromycin 07/15 Hx Tablets 250mg 6tabs 2 tabs by 466.0 Stuart Mckinley, /2013 mouth day M.D. - #1 then 1 08/02 tab by /2013 mouth day#2-5 Amoxicillin/Po 07/21 Hx Tablets 875-125mg 20tabs 1 po bid 466.0 Perfecto T. tassium /2012 Midura, Clavulanate - M.D. 08/31 Naproxen 02/10 Hx Tablets 500mg 60tabs 1 po bid 724.2 Perfecto T. /2012 prn pain Midura, - M.D. 12/23 Ciprofloxacin 02/10 Hx Tablets 500mg 20tabs 1 po bid 604.90 Perfecto Deja. HCL /2012 Midura, - M.D. 07/21 Levofloxacin 10/06 Hx Tablets 500mg 10tabs 1 po qd Perfecto T. Midura, - M.D. 11/10 Robitussin A-C 10/06 Hx 6Oz 1-2 tsp Perfecto T. po q4h Midura, - prn cough M.D. 11/10 Azithromycin 09/11 Hx Tablets 500mg 5tabs 1 po qd 466.0 Perfecto T. Midura, - M.D. 10/06 Doxycycline 08/08 Hx Capsules 100mg 28caps 1 po bid 465.9 Perfecto T. Hyclate Midura, - M.D. 09/11 Bactrim DS 11/23 Hx Tablets 800-160mg 20tabs 1 po bid Perfecto T. Midura, - M.D. 06/06 Robitussin A-C 11/07 Hx 6Oz 1-2 tsp Perfecto T. q4hrs prn Midura, - cough M.D. 10/06 Zithromax 11/07 Hx Tablets 250mg 1Pack as Cezar Coyle-Obed directed Leonela SandhuDSamantha 11/23 Clarinex 08/08 Hx Tablets 5mg samples 1 po qd 477.9 Leonela Matthews 06/06 Azithromycin 07/25 Hx Tablets 250mg 6tabs take 2 466.0 tablets Leonela Matthews by mouth [employer] 08/08 today then take 1 tablet daily for next 4 days Nitroglycerin 03/17 Hx Tablets .4mg 25tabs 1 sl as I10 Cezar Pritchard needed Leonela Sandhu chest M.DSamantha 12/30 pain, february repeat every 5-10min,i f no relief after 3,call emt's Note Due To 03/17 Hx Srebrenko 466.0 [facility] Issues was seen Leonela Matthews by me [employer] 04/05 today illness and is unable to participa te in a week long camping/h iking program Augmentin 01/16 Hx Tablets 875-125mg 28tabs 1 po bid 466.0 with food Cassie, - x 14d [employer] 04/05 Proventil HFA 01/16 Hx Aerosol 108(90Bas 1units 2 puffs 466.0 Perfecto TSamantha e) mcg/ac twice a Ba, - day as M.D. 12/23 needed for cough/whe matthew Amoxicillin/Cl 01/11 Hx Tablets 875-125mg 20tabs 1 bid w/ Perfecto Tan avulanate /2010 food. Midura, Potassium - M.DSamantha 03/17 Protonix 07/24 Hx Tablets 40mg Samples 1 po qd Perfecto T. /2009 DR [place] for Ba, - stomach M.D. 01/11 Citalopram 05/25 Hx Tablets 10mg 60tabs 1-2 po qd Perfecto TSamantha Hydrobromide /2009 Ba, - M.DSamantha 01/11 Augmentin 11/28 Hx Tablets 875-125mg 20tabs 1 po bid Perfecto TSamantha Ba - MErick 05/15 Note For Work 11/28 Hx seen Perfecto Tan /2009 today for Ba, - medical M.DSamantha 05/25 problem. no work 11/28-2 due to illness Clarinex-D 08/24 Hx Tablets 2.5-120 10tabs on po bid Dotson ASamantha ER 12HR prn Jimbo Mireles - congestio 05/25 n Azithromycin 08/15 Hx Tablets 250mg 6tabs 2 po 465.9 Dotson A. /2008 today and Jimbo Mireles - 1 po x 4 Note No Work 08/15 Hx please Dotson A. excuse Jimbo Mireles - from work 07/24 due to illness today and tomorrow Zithromax 10/22 Hx Tablets 250mg 1Pack as Cezar Romero /2007 directed Leonela Sandhu M.D. 03/10 Proair HFA 10/22 Hx Aerosol 108mcg/Ac 1units 2 puffs Cezar Pritchard /2007 t q4hr Leonela Sandhu M.D. 03/10 Robitussin A-C 10/22 Hx 6Oz 1-2 tsp Perfecto T. /2007 q4hrs prn Ba, - cough M.D. 06/28 Loprox 04/01 Hx Cream 0.77% 30gm apply bid 110.9 to Cassie, - affected [employer] 05/25 area Note For Work 04/01 Hx mr reeves 786.2 was seen Cassie, - by in [employer] 09/08 today for illness and may not return to work until saturday, 6\\\\08 Zithromax 04/01 Hx Tablets 250mg 6Tabs 2 po qd 786.2 Perfecto T. Today , Ba, - Then 1 po M.D. 06/28 qd 4 Augmentin 09/29 Hx Tablets 875mg 20tabs 1 PO bid Perfecto T. /2006 With Food Ba, - M.D. 01/13 Robitussin ac 08/28 Hx 4Oz 1-2 tsp Perfecto T. /2006 po q4h Ba, - prn cough M.D. 04/01 Work Excuse 08/28 Hx unable to Perfecto T. /2006 work [facility], - 08/28-08/29 M.D. 09/17 Due To Illness Chantix 07/14 Hx Tablets Starter 1tabs as Perfecto T. /2006 Obed Directed Ba, - M.D. 03/17 Zithromax 12/23 Hx Capsules 250mg 6caps 2 tabs po Perfecto T. /2006 x1, then [place], - 1 tab po M.D. 09/17 qd x more days Zocor 10/03 Hx Tablets 10mg 30tabs 1 po qhs Cassie, - [employer] 03/17 Toprol XL 10/03 Hx Capsules 50mg 45caps 1 po qd Perfecto T. /2005 Ba, - M.D. 10/04 Nitroglycerin 10/03 Hx Tablets .4mg 25tabs 1 SL prn [facility] 03/17 Repeat Q Of 5-10Min,I f No Relief After 3,Call Emt's Zocor 09/05 Hx Tablets 10mg 30tabs one po [facility] T. [facility] 09/02 Diclofenac 09/05 Hx Tablets 75mg 60tabs 1 po bid Dana prn with Cassie, - food for [employer] 03/10 Keflex 07/16 Hx Capsules 500mg 20caps 1 po bid Perfecto T. /2004 [facility], - M.D. 03/10 Lescol-XL 07/16 Hx 80mg Samples 1 po qd [facility]o T. /2004 [facility] 09/05 Lipitor 04/11 Hx Tablets 10mg 30tabs 1 po qd [facility]o T. /2004 [facility] 10/03 Tequin 04/05 Hx 400mg 5units 1 po qd Perfecto T. /2003 Ba, - M.D. 08/08 Combivent 04/05 Hx Asamples 2 puffs Perfecto T. qid Ba, - M.D. 03/15 Aciphex 09/06 Hx 20mg 1 PO qd Perfecto T. /2002 Ba, - M.D. 03/15 Zithromax 09/06 Hx 250mg 6units 2 tabs Perfecto T. /2002 day 1 Ba, - M.DSamantha 02/08 1 tab qd days 2 thru 5 Zithromax 07/23 Hx 250mg 6units 2 Tabs Perfecto T. /2001 Day 1 Ba, - M.D. 09/06 1 Tab qd Days 2 Thru 5 Zithromax 06/17 Hx 250mg 6units 2 Tabs Cezar J. /2000 Day 1 Phoebe - M.DSamantha 09/06 1 Tab qd Days 2 Thru 5 Keflex 08/10 Hx 5Oomg 20units 1 PO bid Perfecto T. /1998 Ba, - M.D. 09/06 Zyban 08/10 Hx 150mg 60units 1 PO qd X Perfecto T. 3 Days, Ba, - Then M.D. 09/06 Increase To bid Immunizations CPT Code Status Date Vaccine Lot # [id number] Given 11/25/2015 Tdap Tetanus, W Pertussis [id number] Given 02/10/2013 Pneumococcal Immunization [id number] Given 09/02/2006 DO Not Use Split Influenza Virus Vaccine [id number] Given 08/01/2005 Tetanus And Diptheria Adult Preservative Free >7Yrs Vital Signs Date Vital Result Comment 09/30/2018 BP Systolic 150 mmHg BP Diastolic 84 mmHg Heart Rate 66 /min Body Temperature 98.1 F Height 73.5 inches 6'1.50" Weight 213.00 lb BMI (Body Mass Index) 27.7 kg/m2 06/27/2018 BP Systolic 126 mmHg BP Diastolic 78 mmHg Heart Rate 68 /min Body Temperature 97.2 F Respiratory Rate 16 /min Height 73.5 inches 6'1.50" Weight 202.25 lb BMI (Body Mass Index) 26.3 kg/m2 03/04/2018 BP Systolic 132 mmHg BP Diastolic 82 mmHg Heart Rate 64 /min Body Temperature 97.7 F Respiratory Rate 16 /min Height 73 inches 6'1" Weight 204.38 lb BMI (Body Mass Index) 27.0 kg/m2 01/22/2018 BP Systolic 120 mmHg BP Diastolic 74 mmHg Heart Rate 78 /min Body Temperature 99.1 F Height 73 inches 6'1" Weight 207.00 lb BMI (Body Mass Index) 27.3 kg/m2 11/20/2017 BP Systolic 130 mmHg BP Diastolic 70 mmHg Heart Rate 92 /min Body Temperature 101.2 F Height 73 inches 6'1" Weight 209.25 lb BMI (Body Mass Index) 27.6 kg/m2 10/08/2017 BP Systolic 140 mmHg BP Diastolic 70 mmHg Heart Rate 60 /min Body Temperature 97.8 F Respiratory Rate 17 /min Height 73 inches 6'1" Weight 214.12 lb BMI (Body Mass Index) 28.2 kg/m2 09/12/2017 BP Systolic 128 mmHg BP Diastolic 86 mmHg Heart Rate 56 /min Body Temperature 98.6 F Respiratory Rate 16 /min Height 73 inches 6'1" Weight 213.25 lb BMI (Body Mass Index) 28.1 kg/m2 08/12/2017 BP Systolic 120 mmHg BP Diastolic 80 mmHg Heart Rate 72 /min Body Temperature 98.8 F Respiratory Rate 16 /min Height 73 inches 6'1" Weight 210.12 lb BMI (Body Mass Index) 27.7 kg/m2 05/28/2017 BP Systolic 116 mmHg BP Diastolic 76 mmHg Heart Rate 66 /min Body Temperature 96.8 F Respiratory Rate 16 /min Height 73 inches 6'1" Weight 207.50 lb BMI (Body Mass Index) 27.4 kg/m2 02/04/2017 BP Systolic 98 mmHg BP Diastolic 66 mmHg Heart Rate 60 /min Body Temperature 97.9 F Respiratory Rate 16 /min Height 73 inches 6'1" Weight 212.12 lb BMI (Body Mass Index) 28.0 kg/m2 01/28/2017 BP Systolic 110 mmHg BP Diastolic 70 mmHg Heart Rate 56 /min Body Temperature 98.4 F Respiratory Rate 16 /min Height 73 inches 6'1" Weight 209.25 lb BMI (Body Mass Index) 27.6 kg/m2 11/01/2016 BP Systolic 112 mmHg BP Diastolic 74 mmHg Heart Rate 66 /min Body Temperature 97.7 F Height 73 inches 6'1" Weight 209.50 lb BMI (Body Mass Index) 27.6 kg/m2 09/28/2016 BP Systolic 136 mmHg BP Diastolic 72 mmHg Heart Rate 60 /min Body Temperature 97.9 F Respiratory Rate 16 /min Height 73 inches 6'1" Weight 215.12 lb BMI (Body Mass Index) 28.4 kg/m2 09/17/2016 BP Systolic 146 mmHg BP Diastolic 90 mmHg Heart Rate 60 /min Body Temperature 97.9 F Height 73 inches 6'1" Weight 215.00 lb BMI (Body Mass Index) 28.4 kg/m2 05/04/2016 BP Systolic 116 mmHg BP Diastolic 66 mmHg Heart Rate 72 /min Body Temperature 99.0 F Respiratory Rate 16 /min Height 73 inches 6'1" Weight 204.12 lb BMI (Body Mass Index) 26.9 kg/m2 04/24/2016 BP Systolic 160 mmHg BP Diastolic 90 mmHg Heart Rate 66 /min Body Temperature 97.5 F Respiratory Rate 18 /min Height 73 inches 6'1" Weight 203.00 lb BMI (Body Mass Index) 26.8 kg/m2 12/31/2015 BP Systolic 138 mmHg BP Diastolic 70 mmHg Heart Rate 74 /min Body Temperature 97.9 F Respiratory Rate 16 /min Height 73 inches 6'1" Weight 208.00 lb BMI (Body Mass Index) 27.4 kg/m2 11/25/2015 BP Systolic 136 mmHg BP Diastolic 60 mmHg Heart Rate 60 /min Body Temperature 97.9 F Respiratory Rate 16 /min Height 73 inches 6'1" Weight 205.12 lb BMI (Body Mass Index) 27.1 kg/m2 10/27/2015 BP Systolic 136 mmHg BP Diastolic 86 mmHg Heart Rate 72 /min Body Temperature 97.0 F Respiratory Rate 16 /min Height 73 inches 6'1" Weight 210.25 lb BMI (Body Mass Index) 27.7 kg/m2 05/04/2015 BP Systolic 132 mmHg BP Diastolic 74 mmHg Heart Rate 64 /min Body Temperature 96.9 F Respiratory Rate 18 /min Height 73 inches 6'1" Weight 199.00 lb BMI (Body Mass Index) 26.3 kg/m2 12/23/2014 BP Systolic 158 mmHg BP Diastolic 88 mmHg Heart Rate 60 /min Body Temperature 99.9 F Respiratory Rate 18 /min Height 73 inches 6'1" Weight 207.25 lb BMI (Body Mass Index) 27.3 kg/m2 08/02/2014 BP Systolic 120 mmHg BP Diastolic 70 mmHg Heart Rate 56 /min Body Temperature 97.9 F Respiratory Rate 16 /min Height 73 inches 6'1" Weight 208.38 lb BMI (Body Mass Index) 27.5 kg/m2 07/15/2014 BP Systolic 140 mmHg BP Diastolic 90 mmHg Heart Rate 54 /min Body Temperature 98.0 F Respiratory Rate 16 /min Height 73 inches 6'1" Weight 205.00 lb BMI (Body Mass Index) 27.0 kg/m2 08/31/2013 BP Systolic 136 mmHg BP Diastolic 68 mmHg Heart Rate 76 /min Body Temperature 98.2 F Respiratory Rate 14 /min Height 73 inches 6'1" Weight 206.00 lb BMI (Body Mass Index) 27.2 kg/m2 07/21/2013 BP Systolic 130 mmHg BP Diastolic 70 mmHg Heart Rate 72 /min Body Temperature 98.2 F Respiratory Rate 16 /min Height 73 inches 6'1" Weight 204.00 lb BMI (Body Mass Index) 26.9 kg/m2 02/10/2013 BP Systolic 158 mmHg BP Diastolic 80 mmHg Heart Rate 60 /min Body Temperature 98.1 F Respiratory Rate 18 /min Height 73 inches 6'1" Weight 203.00 lb BMI (Body Mass Index) 26.8 kg/m2 11/10/2012 BP Systolic 126 mmHg BP Diastolic 80 mmHg Heart Rate 60 /min Body Temperature 98.5 F Height 73 inches 6'1" Weight 203.25 lb BMI (Body Mass Index) 26.8 kg/m2 10/06/2012 BP Systolic 128 mmHg BP Diastolic 82 mmHg Heart Rate 48 /min Body Temperature 97.5 F Height 73 inches 6'1" Weight 202.00 lb BMI (Body Mass Index) 26.6 kg/m2 09/11/2012 BP Systolic 136 mmHg BP Diastolic 76 mmHg Heart Rate 54 /min Body Temperature 97.7 F Height 73 inches 6'1" Weight 203.00 lb BMI (Body Mass Index) 26.8 kg/m2 08/08/2012 BP Systolic 116 mmHg BP Diastolic 70 mmHg Heart Rate 56 /min Body Temperature 98.3 F Height 73 inches 6'1" Weight 199.00 lb BMI (Body Mass Index) 26.3 kg/m2 06/06/2012 BP Systolic 148 mmHg BP Diastolic 86 mmHg Heart Rate 68 /min Body Temperature 96.7 F Height 73 inches 6'1" Weight 198.00 lb BMI (Body Mass Index) 26.1 kg/m2 11/23/2011 BP Systolic 148 mmHg BP Diastolic 94 mmHg Heart Rate 60 /min Body Temperature 98.1 F Height 73 inches 6'1" Weight 209.00 lb BMI (Body Mass Index) 27.6 kg/m2 11/07/2011 BP Systolic 144 mmHg BP Diastolic 98 mmHg Heart Rate 60 /min Body Temperature 98.0 F O2 % BldC Oximetry 99 % Height 73 inches 6'1" Weight 207.00 lb BMI (Body Mass Index) 27.3 kg/m2 10/05/2011 BP Systolic 130 mmHg BP Diastolic 88 mmHg Heart Rate 60 /min Body Temperature 97.9 F Height 73 inches 6'1" Weight 209.50 lb BMI (Body Mass Index) 27.6 kg/m2 09/13/2011 BP Systolic 130 mmHg BP Diastolic 70 mmHg Heart Rate 64 /min Body Temperature 98.1 F Respiratory Rate 20 /min Height 73 inches 6'1" Weight 208.00 lb BMI (Body Mass Index) 27.4 kg/m2 08/08/2011 BP Systolic 120 mmHg BP Diastolic 80 mmHg Heart Rate 64 /min Body Temperature 97.4 F Height 73 inches 6'1" Weight 202.00 lb BMI (Body Mass Index) 26.6 kg/m2 07/25/2011 BP Systolic 130 mmHg BP Diastolic 80 mmHg Heart Rate 60 /min Body Temperature 98.2 F Respiratory Rate 20 /min Height 73 inches 6'1" Weight 201.00 lb BMI (Body Mass Index) 26.5 kg/m2 04/05/2011 BP Systolic 110 mmHg BP Diastolic 64 mmHg Heart Rate 56 /min Body Temperature 97.8 F Height 73 inches 6'1" Weight 202.00 lb BMI (Body Mass Index) 26.6 kg/m2 03/17/2011 BP Systolic 144 mmHg BP Diastolic 84 mmHg Heart Rate 54 /min Body Temperature 98.1 F O2 % BldC Oximetry 97 % Height 73 inches 6'1" Weight 205.00 lb BMI (Body Mass Index) 27.0 kg/m2 01/11/2011 BP Systolic 116 mmHg BP Diastolic 62 mmHg Heart Rate 60 /min Body Temperature 99.0 F Respiratory Rate 16 /min O2 % BldC Oximetry 95 % Height 73 inches 6'1" Weight 203.00 lb BMI (Body Mass Index) 26.8 kg/m2 07/31/2010 BP Systolic 130 mmHg BP Diastolic 80 mmHg Heart Rate 72 /min Respiratory Rate 15 /min Height 73 inches 6'1" Weight 203.00 lb BMI (Body Mass Index) 26.8 kg/m2 07/24/2010 BP Systolic 110 mmHg BP Diastolic 70 mmHg Heart Rate 56 /min Body Temperature 98.3 F Height 73 inches 6'1" Weight 200.00 lb BMI (Body Mass Index) 26.4 kg/m2 06/08/2010 BP Systolic 120 mmHg BP Diastolic 64 mmHg Heart Rate 72 /min Body Temperature 98.4 F Height 73 inches 6'1" Weight 195.00 lb BMI (Body Mass Index) 25.7 kg/m2 05/25/2010 BP Systolic 118 mmHg BP Diastolic 76 mmHg Heart Rate 60 /min Body Temperature 97.0 F Height 73 inches 6'1" Weight 195.00 lb BMI (Body Mass Index) 25.7 kg/m2 05/15/2010 BP Systolic 128 mmHg BP Diastolic 72 mmHg Heart Rate 76 /min Body Temperature 97.0 F Height 73 inches 6'1" Weight 194.00 lb BMI (Body Mass Index) 25.6 kg/m2 11/28/2009 BP Systolic 148 mmHg BP Diastolic 80 mmHg Heart Rate 60 /min Body Temperature 98.4 F Respiratory Rate 20 /min O2 % BldC Oximetry 97 % Weight 205.00 lb 08/15/2009 BP Systolic 100 mmHg BP Diastolic 74 mmHg Heart Rate 78 /min Body Temperature 98.3 F Height 73 inches 6'1" Weight 207.00 lb BMI (Body Mass Index) 27.3 kg/m2 07/01/2009 BP Systolic 120 mmHg BP Diastolic 80 mmHg Heart Rate 72 /min Respiratory Rate 18 /min Height 73 inches 6'1" Weight 203.00 lb BMI (Body Mass Index) 26.8 kg/m2 06/28/2009 BP Systolic 120 mmHg BP Diastolic 70 mmHg Heart Rate 56 /min Body Temperature 98.6 F Respiratory Rate 20 /min Height 73 inches 6'1" Weight 200.00 lb BMI (Body Mass Index) 26.4 kg/m2 04/26/2009 BP Systolic 120 mmHg BP Diastolic 76 mmHg Body Temperature 98.7 F Height 73 inches 6'1" Weight 210.00 lb BMI (Body Mass Index) 27.7 kg/m2 03/10/2009 BP Systolic 112 mmHg BP Diastolic 76 mmHg Heart Rate 60 /min Body Temperature 98.0 F Height 73 inches 6'1" Weight 210.00 lb BMI (Body Mass Index) 27.7 kg/m2 10/22/2008 BP Systolic 128 mmHg BP Diastolic 60 mmHg Heart Rate 72 /min Body Temperature 98.4 F Height 73 inches 6'1" Weight 204.00 lb BMI (Body Mass Index) 26.9 kg/m2 09/08/2008 BP Systolic 120 mmHg BP Diastolic 70 mmHg Heart Rate 66 /min Body Temperature 98.3 F Height 73 inches 6'1" Weight 205.00 lb BMI (Body Mass Index) 27.0 kg/m2 04/01/2008 BP Systolic 122 mmHg BP Diastolic 70 mmHg Body Temperature 98.3 F Height 73 inches 6'1" Weight 210.00 lb BMI (Body Mass Index) 27.7 kg/m2 03/17/2008 BP Systolic 112 mmHg BP Diastolic 70 mmHg Heart Rate 60 /min Height 73 inches 6'1" Weight 207.00 lb BMI (Body Mass Index) 27.3 kg/m2 01/14/2008 BP Systolic 110 mmHg BP Diastolic 60 mmHg Heart Rate 62 /min Body Temperature 97.1 F Height 73 inches 6'1" Weight 216.00 lb BMI (Body Mass Index) 28.5 kg/m2 09/29/2007 BP Systolic 120 mmHg BP Diastolic 80 mmHg Heart Rate 78 /min Body Temperature 98.7 F Respiratory Rate 24 /min Height 73 inches 6'1" Weight 210.00 lb BMI (Body Mass Index) 27.7 kg/m2 09/17/2007 BP Systolic 110 mmHg BP Diastolic 70 mmHg Heart Rate 64 /min Height 73 inches 6'1" Weight 209.00 lb BMI (Body Mass Index) 27.6 kg/m2 08/28/2007 BP Systolic 110 mmHg BP Diastolic 80 mmHg Heart Rate 44 /min Body Temperature 98.4 F Height 73 inches 6'1" Weight 210.00 lb BMI (Body Mass Index) 27.7 kg/m2 07/14/2007 BP Systolic 124 mmHg BP Diastolic 68 mmHg Heart Rate 72 /min Height 73 inches 6'1" Weight 204.00 lb BMI (Body Mass Index) 26.9 kg/m2 06/18/2007 BP Systolic 122 mmHg BP Diastolic 66 mmHg Heart Rate 60 /min Body Temperature 96.8 F Height 73 inches 6'1" Weight 202.00 lb BMI (Body Mass Index) 26.6 kg/m2 01/16/2007 BP Systolic 110 mmHg BP Diastolic 70 mmHg Heart Rate 56 /min Body Temperature 97.9 F Height 73 inches 6'1" Weight 212.00 lb BMI (Body Mass Index) 28.0 kg/m2 10/03/2006 BP Systolic 126 mmHg BP Diastolic 76 mmHg Heart Rate 60 /min Weight 197.00 lb 07/27/2006 BP Systolic 128 mmHg BP Diastolic 70 mmHg Heart Rate 66 /min Weight 196.00 lb 02/08/2006 BP Systolic 136 mmHg BP Diastolic 80 mmHg Heart Rate 72 /min Weight 200.00 lb 01/14/2006 BP Systolic 104 mmHg BP Diastolic 70 mmHg Body Temperature 98.4 F Weight 194.00 lb 11/21/2005 BP Systolic 140 mmHg BP Diastolic 86 mmHg Heart Rate 66 /min Weight 197.00 lb 09/05/2005 BP Systolic 122 mmHg BP Diastolic 78 mmHg Heart Rate 74 /min Weight 198.00 lb 07/23/2005 BP Systolic 124 mmHg BP Diastolic 80 mmHg Heart Rate 72 /min Weight 188.00 lb 07/16/2005 BP Systolic 122 mmHg BP Diastolic 80 mmHg Heart Rate 72 /min Body Temperature 98.9 F Weight 188.00 lb 07/11/2005 BP Systolic 122 mmHg BP Diastolic 80 mmHg Heart Rate 68 /min Weight 188.00 lb 03/15/2005 BP Systolic 110 mmHg BP Diastolic 70 mmHg Heart Rate 64 /min Weight 196.00 lb 08/09/2004 BP Systolic 136 mmHg BP Diastolic 80 mmHg Heart Rate 66 /min Weight 198.00 lb 04/05/2004 BP Systolic 150 mmHg BP Diastolic 80 mmHg Heart Rate 66 /min Body Temperature 96.3 F Weight 200.00 lb 09/06/2003 BP Systolic 160 mmHg BP Diastolic 90 mmHg Heart Rate 78 /min Weight 198.00 lb 07/23/2002 BP Systolic 122 mmHg BP Diastolic 78 mmHg Heart Rate 60 /min Body Temperature 98.5 F Weight 186.00 lb 06/17/2001 Body Temperature 97.2 F Weight 192.00 lb 08/10/1999 BP Systolic 138 mmHg BP Diastolic 80 mmHg Body Temperature 96.1 F Weight 194.00 lb 10/20/1997 Body Temperature 96.9 F Weight 184.00 lb Results Test Date Test Result H/L Range Note Ua - Non Micro ([facility]) 06/27/2018 Appearance clear Color yellow Glucose, Urine [place] [place] neg Bilirubin neg Ketones trace SP Grav >=1.030 Blood neg PH 5.5 Protein neg Urobil 0.2 Nitrite neg Leukocytes ([facility] [place]rex[place] neg CBC Electronic [facility] 06/27/2018 WBC 7.2 x10^3/UL 4.0-10.0 RBC 4.88 x10^6/UL 3.93-6.00 HGB 16.1 g/dL 12.0-17.0 HCT 47 % 35-50 MCV 96.1 fL High 80.0-95.0 MCH 33.0 pg High 25.6-32.2 MCHC 34.3 g/dL 32.2-36.0 RDW-CV 13.2 % 11.6-14.4 PLT 243 x10^3/UL 163-400 MPV 10.9 fL 9.4-12.4 Linda# 3.77 x10^3/UL 1.56-6.13 Lymph# 2.55 x10^3/UL 1.18-3.74 Ford# 0.63 x10^3/UL 0.24-0.82 Eos # 0.2 x10^3/UL 0.0-0.5 Baso # 0.03 x10^3/UL 0.01-0.08 Linda% 52.3 % 34.0-70.0 Lymph % 35.3 % 20.0-52.0 Ford% 8.7 % 5.0-12.0 Eos% 3.2 % 0.7-7.0 Baso% 0.4 % 0.1-1.2 Urine Culture And 06/27/2018 Urine Culture SEE RESULT BELOW 1 Sensitivities Comprehensive Metabolic Prof 06/27/2018 Sodium 137 mEq/L 134-149 Potassium 4.9 mEq/L 3.6-5.5 Chloride 101 mEq/L 94-112 Carbon Dioxide 25 mEq/L 21-32 Glucose 108 mg/dL High 70-105 BUN 12 mg/dL 6-26 Creatinine 1.0 mg/dL 0.6-1.4 BUN/Creat Ratio 12.0 CALC 8.0-36.0 Calcium 9.6 mg/dL 8.6-10.2 Total Protein 7.0 g/dL 6.4-8.3 Albumin 4.3 g/dL 3.8-5.5 Globulin 2.7 g/dL 2.0-4.8 A/G Ratio 1.6 CALC 0.6-2.3 Alk. Phosphatase 63 U/L 22-95 Alt (SGPT) 37 U/L High 7-35 Ast (Sgot) 23 U/L 5-34 Total Bilirubin 0.3 mg/dL 0.2-1.3 GFR Non- >60 ml/min/1.73m^ >=60 GFR >60 ml/min/1.73m^ >=60 Laboratory test finding 06/27/2018 PSA 0.7 ng/mL 0.0-4.0 Lipid Profile 06/27/2018 Cholesterol 185 mg/dL 120-200 Triglycerides 130 mg/dL 30-200 HDL Cholesterol 56 mg/dL 30-70 LDL (Calculated) 103 CALC 0-129 VLDL Cholesterol 26 mg/dL 0-50 HDL Risk Factor 3.3 CALC 0.0-4.4 Influenza A&B-a 11/20/2017 Influenza A neg Influenza B pos Lipid Profile 10/08/2017 Cholesterol 198 mg/dL 120-200 Triglycerides 211 mg/dL High 30-200 HDL Cholesterol 56 mg/dL 30-70 LDL (Calculated) 100 CALC 0-129 VLDL Cholesterol 42 mg/dL 0-50 HDL Risk Factor 3.5 CALC 0.0-4.4 CBC Electronic (a) 10/08/2017 WBC 7.2 3.6-9.6 RBC 4.78 3.90-5.70 Hemoglobin ([facility]/CMC/CTX) 15.3 g/dL 12.1 - 17.2 Hematocrit (a/CMC/CTX) 46.5 % 36.1 - 50.3 Platelets 197 10^3/ul 150-400 Lymph% 41.8 % 17.0-48.0 Mixed% 5.4 Neutrophils % 52.8 Mean Corpuscular Vol 97 82.2-97.4 Mean Corpuscular Hemoglobin 32.1 27.6-33.3 Mean Corpuscular Hemo Concen 33.0 32.0-36.0 RDW 13.0 11.6-13.7 Mean Platelet Volume 8.1 5.5-11.0 Comprehensive Metabolic Prof 10/08/2017 Sodium 145 mEq/L 134-149 Potassium 4.4 mEq/L 3.6-5.5 Chloride 109 mEq/L 94-112 Carbon Dioxide 26 mEq/L 21-32 Glucose 105 mg/dL 70-105 BUN 14 mg/dL 6-26 Creatinine 1.0 mg/dL 0.6-1.4 BUN/Creat Ratio 14.0 CALC 8.0-36.0 Calcium 10.0 mg/dL 8.6-10.2 Total Protein 7.6 g/dL 6.4-8.3 Albumin 4.7 g/dL 3.8-5.5 Globulin 2.9 g/dL 2.0-4.8 A/G Ratio 1.6 CALC 0.6-2.3 Alk. Phosphatase 54 U/L 22-95 Alt (SGPT) 31 U/L 7-35 Ast (Sgot) 20 U/L 5-34 Total Bilirubin 0.3 mg/dL 0.2-1.3 GFR Non- >60 ml/min/1.73m^ >=60 GFR >60 ml/min/1.73m^ >=60 Laboratory test finding 01/29/2017 Urine Culture And SEE RESULT BELOW 2 Sensitivities Urinalysis Profile 01/29/2017 Urine Color Yellow Urine Appearance Clear Urine Specific [place] 1.016 1.010-1.030 Urine pH 6.0 5-9 Urine Urobilinogen Negative Negative Urine Ketones Negative Negative Urine Protein Negative Negative Urine Leukocytes Trace Negative Urine Blood Negative Negative Urine Nitrite Negative Negative Urine Bilirubin Negative Negative Urine Glucose Negative Negative Urine White Blood Cell Trace(0-5/hpf) Absent Urine Red Blood Cell Trace(0-2/hpf) Absent Urine Bacteria Absent Absent Laboratory test finding 01/29/2017 Troponin I 0.08 ng/mL High <0.04 3 TSH (Thyroid Stim Horm) 1.00 mcIU/mL 0.34-5.60 CKMB 01/29/2017 CKMB ng/mL 1.6 ng/mL 0.6-6.3 Laboratory test finding 01/29/2017 Magnesium 2.3 mg/dL 1.9-2.7 Lipase 37 U/L 11.0-82.0 Creatine Kinase(CK) 85 U/L 10-223 C Reactive Protein < 1.00 mg/L < 5.00 4 Comp Metabolic Panel 01/29/2017 Sodium 138 mmol/L 133-145 Potassium 4.6 mmol/L 3.5-5.0 Chloride 104 mmol/L 101-111 Co2 Carbon Dioxide 29 mmol/L 22-32 Anion Gap 5 mmol/L 2-11 Glucose 96 mg/dL 70-100 Blood Urea Nitrogen 17 mg/dL 6-24 Creatinine 1.16 mg/dL 0.67-1.17 BUN/Creatinine Ratio 14.7 8-20 Calcium 9.8 mg/dL 8.6-10.3 Total Protein 7.4 g/dL 6.4-8.9 Albumin 4.2 g/dL 3.2-5.2 Globulin 3.2 g/dL 2-4 Albumin/Globulin Ratio 1.3 1-3 Total Bilirubin 0.50 mg/dL 0.2-1.0 Alkaline Phosphatase 54 U/L 34-104 Alt 31 U/L 7-52 Ast 20 U/L 13-39 Egfr Non- 65.1 >60 Egfr 83.8 >60 5 Laboratory test finding 01/29/2017 Lactic Acid 0.9 mmol/L 0.5-2.0 6 B-Type Natriuretic Peptide BNP 107 pg/mL High 7 CBC Auto Diff 01/29/2017 White Blood Count 7.2 10^3/uL 3.5-10.8 Red Blood Count 5.25 10^6/uL 4.0-5.4 Hemoglobin 16.6 g/dL 14.0-18.0 Hematocrit 50 % 42-52 Mean Corpuscular Volume 94 fL 80-94 Mean Corpuscular Hemoglobin 32 pg High 27-31 Mean Corpuscular HGB Conc 34 g/dL 31-36 Red Cell Distribution Width 14 % 10.5-15 Platelet Count 186 10^3/uL 150-450 Mean Platelet Volume 9 um3 7.4-10.4 Abs Neutrophils 2.9 10^3/uL 1.5-7.7 Abs Lymphocytes 3.2 10^3/uL 1.0-4.8 Abs Monocytes 0.8 10^3/uL 0-0.8 Abs Eosinophils 0.2 10^3/uL 0-0.6 Abs Basophils 0.1 10^3/uL 0-0.2 Abs Nucleated RBC 0.01 10^3/uL Granulocyte % 40.7 % 38-83 Lymphocyte % 44.5 % 25-47 Monocyte % 10.9 % High 1-9 Eosinophil % 3.1 % 0-6 Basophil % 0.8 % 0-2 Nucleated Red Blood Cells % 0.1 Laboratory test finding 01/29/2017 Inr/Protime 0.86 Low 0.89-1.11 Partial Thrombo Time PTT 26.7 seconds 26.0-36.3 D Dimer Quantitative < 200 ng/mL Less Than 230 8 Comprehensive Metabolic Prof 09/28/2016 Sodium 141 mEq/L 134-149 Potassium 4.4 mEq/L 3.6-5.5 Chloride 101 mEq/L 94-112 Carbon Dioxide 24 mEq/L 21-32 Glucose 119 mg/dL High 70-105 BUN 12 mg/dL 6-26 Creatinine 0.9 mg/dL 0.6-1.4 BUN/Creat Ratio 13.3 CALC 8.0-36.0 Calcium 9.7 mg/dL 8.6-10.2 Total Protein 7.4 g/dL 6.4-8.3 Albumin 4.4 g/dL 3.8-5.5 Globulin 3.0 g/dL 2.0-4.8 A/G Ratio 1.5 CALC 0.6-2.3 Alk. Phosphatase 49 U/L 22-95 Alt (SGPT) 35 U/L 7-35 Ast (Sgot) 23 U/L 5-34 Total Bilirubin 0.7 mg/dL 0.2-1.3 GFR Non- >60 ml/min/1.73m^ >=60 GFR >60 ml/min/1.73m^ >=60 Lipid Profile 09/28/2016 Cholesterol 192 mg/dL 120-200 Triglycerides 148 mg/dL 30-200 HDL Cholesterol 51 mg/dL 30-70 LDL (Calculated) 111 CALC 0-129 VLDL Cholesterol 30 mg/dL 0-50 HDL Risk Factor 3.8 CALC 0.0-4.4 Complete Blood Count 09/28/2016 WBC 7.5 x10^3/UL 3.6-9.6 RBC 4.73 x10^6/UL 3.90-5.70 HGB 15.4 g/dL 12.1-17.2 HCT 46 % 36-50 MCV 96.0 fL 82.2-97.4 MCH 32.4 pg 27.6-33.3 MCHC 33.8 g/dL 33.0-35.5 RDW 13.5 % 11.6-13.7 PLT 189 x10^3/UL 150-400 MPV 7.8 fL 7.4-10.4 Gran # 4.6 x10^3/UL 1.5-7.2 Lymph# 2.5 x10^3/UL 0.7-4.9 Ford# 0.4 x10^3/UL 0.1-0.9 Gran % 60.2 % 42.2-75.2 Lymph % 34.2 % 20.5-51.1 Ford% 5.6 % 1.7-9.3 Laboratory test 08/06/2016 Surgical Interface SEE RESULT BELOW 9 finding Order Influenza A&B[facility] 12/31/2015 Influenza A positive negative Influenza B negative negative CBC Electronic ([facility]) 11/25/2015 WBC 6.9 3.6-9.6 RBC 4.66 3.90-5.70 Hemoglobin ([facility]/CTX) 15.3 g/dL 12.1 - 17.2 Hematocrit (a/CMC/CTX) 45.6 % 36.1 - 50.3 Platelets 201 10^3/ul 150-400 Lymph% 39.7 % 17.0-48.0 Mixed% 6.5 Neutrophils % 53.8 Mean Corpuscular Vol 98 High 82.2-97.4 Mean Corpuscular Hemoglobin 32.7 27.6-33.3 Mean Corpuscular Hemo Concen 33.4 32.0-36.0 RDW 13.5 11.6-13.7 Mean Platelet Volume 8.0 5.5-11.0 Laboratory test finding 11/25/2015 PSA 0.8 ng/mL 0.0-4.0 Comprehensive Metabolic Prof 10/27/2015 Sodium 142 mEq/L 134-149 Potassium 4.7 mEq/L 3.6-5.5 Chloride 102 mEq/L 94-112 Carbon Dioxide 29 mEq/L 21-32 Glucose 117 mg/dL High 70-105 BUN 11 mg/dL 6-26 Creatinine 0.9 mg/dL 0.6-1.4 BUN/Creat Ratio 12.2 CALC 8.0-36.0 Calcium 9.7 mg/dL 8.6-10.2 Total Protein 7.4 g/dL 6.4-8.3 Albumin 4.1 g/dL 3.8-5.5 Globulin 3.3 g/dL 2.0-4.8 A/G Ratio 1.2 CALC 0.6-2.3 Alk. Phosphatase 55 U/L 22-95 Alt (SGPT) 30 U/L 7-35 Ast (Sgot) 23 U/L 5-34 Total Bilirubin 0.3 mg/dL 0.2-1.3 GFR Non- >60 ml/min/1.73m^ >=60 GFR >60 ml/min/1.73m^ >=60 Lipid Profile 10/27/2015 Cholesterol 188 mg/dL 120-200 Triglycerides 135 mg/dL 30-200 HDL Cholesterol 50 mg/dL 30-70 LDL (Calculated) 111 CALC 0-129 VLDL Cholesterol 27 mg/dL 0-50 HDL Risk Factor 3.8 CALC 0.0-4.4 Comprehensive Metabolic Prof 12/23/2014 Sodium 139 mEq/L 134-149 Potassium 4.4 mEq/L 3.6-5.5 Chloride 102 mEq/L 94-112 Carbon Dioxide 27 mEq/L 21-32 Glucose 107 mg/dL High 70-105 10 BUN 9 mg/dL 6-26 Creatinine 0.9 mg/dL 0.6-1.4 BUN/Creat Ratio 10.0 CALC 8.0-36.0 Calcium 9.4 mg/dL 8.6-10.2 Total Protein 7.3 g/dL 6.4-8.3 Albumin 4.2 g/dL 3.8-5.5 Globulin 3.1 g/dL 2.0-4.8 A/G Ratio 1.4 CALC 0.6-2.3 Alk. Phosphatase 62 U/L 22-95 Alt (SGPT) 40 U/L High 7-35 11 Ast (Sgot) 24 U/L 5-34 Total Bilirubin 0.5 mg/dL 0.2-1.3 Lipid Profile 12/23/2014 Cholesterol 170 mg/dL 120-200 Triglycerides 78 mg/dL 30-200 HDL Cholesterol 51 mg/dL 30-70 LDL (Calculated) 103 CALC 0-129 VLDL Cholesterol 16 mg/dL 0-50 HDL Risk Factor 3.3 CALC 0.0-4.4 Influenza A&B-fma 12/23/2014 Influenza A NEG Influenza B NEG Comprehensive Metabolic Prof 08/31/2013 Albumin 4.4 g/dL 3.8-5.5 Alk. Phos. 67 U/L 22-95 Alt (SGPT) 32 U/L 10-40 Ast (Sgot) 23 U/L 5-34 BUN 14 mg/dL 6-26 Calcium 9.4 mg/dL 8.6-10.2 Chloride 103 mEq/L 94-112 Creatinine 1.0 mg/dL 0.6-1.4 Carbon Dioxide 28 mEq/L 21-32 Glucose 119 mg/dL High 70-105 12 Sodium 139 mEq/L 134-149 Total Bilirubin 0.4 mg/dL 0.2-1.3 Total Protein 7.3 g/dL 6.3-8.1 Potassium 4.5 mEq/L 3.6-5.5 Globulin 2.9 g/dL 2.0-4.8 A/G Ratio 1.5 Calc 0.6-2.3 BUN/Creat Ratio 13.8 Calc 8.0-36.0 Comprehensive Metabolic Prof 07/31/2013 Albumin 4.7 g/dL 3.8-5.5 Alk. Phos. 64 U/L 22-95 Alt (SGPT) 78 U/L High 10-40 Ast (Sgot) 46 U/L High 5-34 BUN 15 mg/dL 6-26 Calcium 9.2 mg/dL 8.6-10.2 Chloride 107 mEq/L 94-112 Creatinine 1.1 mg/dL 0.6-1.4 Carbon Dioxide 26 mEq/L 21-32 Glucose 127 mg/dL High 70-105 13 Sodium 139 mEq/L 134-149 Total Bilirubin 0.4 mg/dL 0.2-1.3 Total Protein 7.5 g/dL 6.3-8.1 Potassium 4.8 mEq/L 3.6-5.5 Globulin 2.7 g/dL 2.0-4.8 A/G Ratio 1.7 Calc 0.6-2.3 BUN/Creat Ratio 13.6 Calc 8.0-36.0 Lipid Profile 07/31/2013 Cholesterol 213 mg/dL High 120-200 HDL 53 mg/dL 30-70 Triglycerides 92 mg/dL 30-200 HDL Risk Factor 4.0 CALC 0.0-4.4 LDL (Calculated) 141 CALC High 0-129 VLDL (Calculated) 18 mg/dL 0-50 Lyme Western Blot Ser 08/08/2012 IgG P93 Ab. Absent 14 IgG P66 Ab. Absent 14 IgG P58 Ab. Absent 14 IgG P45 Ab. Absent 14 IgG P41 Ab. Absent 14 IgG P39 Ab. Absent 14 IgG P30 Ab. Absent 14 IgG P28 Ab. Absent 14 IgG P23 Ab. Absent 14 IgG P18 Ab. Absent 14 Lyme IgG WB Interp. Negative 14, 15 IgM P41 Ab. Absent 14 IgM P39 Ab. Absent 14 IgM P23 Ab. Absent 14 Lyme IgM WB Interp. Negative 14, 16 Laboratory test finding 08/08/2012 C-Reactive Protein 0.6 mg/L 0.0-5.0 14 Comprehensive Metabolic Prof 06/06/2012 Albumin 4.3 g/dL 3.8-5.5 Alk. Phos. 56 U/L 22-95 Alt (SGPT) 32 U/L 10-40 Ast (Sgot) 24 U/L 5-34 BUN 15 mg/dL 6-26 Calcium 9.0 mg/dL 8.6-10.2 Chloride 102 mEq/L 94-112 Creatinine 1.1 mg/dL 0.6-1.4 Carbon Dioxide 23 mEq/L 21-32 Glucose 124 mg/dL High 70-105 Sodium 140 mEq/L 134-149 Total Bilirubin 0.5 mg/dL 0.2-1.3 Total Protein 6.4 g/dL 6.3-8.1 Potassium 4.2 mEq/L 3.6-5.5 Globulin 2.1 g/dL 2.0-4.8 A/G Ratio 2.1 Calc 0.6-2.2 BUN/Creat Ratio 13.6 Calc 8.0-36.0 Lipid Profile 06/06/2012 Cholesterol 181 mg/dL 120-200 HDL 45 mg/dL 30-70 Triglycerides 121 mg/dL 30-200 HDL Risk Factor 4.0 CALC 0.0-4.0 LDL (Calculated) 112 CALC 0-129 VLDL (Calculated) 24 mg/dL 0-50 Lipid Profile 09/24/2011 Cholesterol 212 mg/dL High 120-200 HDL 54 mg/dL 30-70 Triglycerides 110 mg/dL 30-200 HDL Risk Factor 3.9 CALC 0.0-4.0 LDL (Calculated) 136 CALC High 0-129 VLDL (Calculated) 22 mg/dL 0-50 CBC Auto Diff 09/12/2011 White Blood Count 8.2 CUMM 4.8-10.8 Red Cell Count 4.79 CUMM 4.6-6.2 Hemoglobin 16.2 g/dL 14.0-18.0 Hematocrit 46 % 42-52 Mean Corpuscular Volume 97 um3 High 80-94 Mean Corpuscular Hemoglob 34 pg High 27-31 Mean Corpuscular HGB Cone 35 g/dL 32-36 Redcell Distribution WDTH 14 % 10.5-15 Platelet Count 204 CUMM 150-450 Mean Platelet Volume 8.9 um3 7.4-10.4 Gran % 53.8 % 38-83 Lymph % 34.9 % 25-47 Mononuclear % 8.8 % 1-9 Eosinophil % 1.8 % 0-6 Basophil % 0.7 % 0-2 Abs Lymphs 2.9 1.0-4.8 Abs Mononuclear 0.7 0-0.8 Absolute Neutrophil Count 4.4 1.5-7.7 Abs Eosinophils 0.1 0-0.6 Abs Basophils 0.1 0-0.2 Comp Metabolic Panel 09/12/2011 Sodium 139 mmol/L 135-145 Potassium 4.5 mmol/L 3.5-5.0 Chloride 105 mmol/L 101-111 Co2 (Carbon Dioxide) 28.0 mmol/L 22-32 Anion Gap 6.0 mmol/L 2-11 17 Glucose 95 mg/dL 70-100 BUN 13 mg/dL 6-24 Creatinine 1.1 mg/dL 0.50-1.40 One Over Creatinine 0.90 BUN/Creatinine Ratio 11.8 8-20 Calcium 9.8 mg/dL 8.1-9.9 Total Protein 7.7 GM/DL 6.2-8.1 Albumin 4.3 GM/DL 3.6-5.4 Globulin 3.4 GM/DL 2-4 Albumin/Globulin Ratio 1.3 1-3 Bilirubin Total 0.5 mg/dL 0.4-1.5 18 Alkaline Phosphatase 56 U/L 39-117 Alt (SGPT) 43 U/L 17-63 Ast (Sgot) 31 U/L 12-42 eGFR Non- 70.6 > 60 eGFR 90.8 > 60 19 Laboratory test finding 09/12/2011 Troponin-I 0 NG/ML 0-0.06 20 TSH 1.00 MIU/ML 0.34-5.60 Comprehensive Metabolic Prof 01/11/2011 Albumin 4.9 g/dL 3.8-5.5 Alk. Phos. 58 U/L -95 Alt (SGPT) 40 U/L 10-40 Ast (Sgot) 28 U/L 5-34 BUN 15 mg/dL 6-26 Calcium 10.2 mg/dL 8.6-10.2 Chloride 102 mEq/L 94-112 Creatinine 1.1 mg/dL 0.6-1.4 Carbon Dioxide 28 mEq/L 21-32 Glucose 92 mg/dL 70-105 Sodium 142 mEq/L 134-149 Total Bilirubin 0.2 mg/dL 0.2-1.3 Total Protein 7.9 g/dL 6.3-8.1 Potassium 4.6 mEq/L 3.6-5.5 Globulin 3.0 g/dL 2.0-4.8 A/G Ratio 1.6 Calc 0.6-2.2 BUN/Creat Ratio 13.3 Calc 8.0-36.0 Lipid Profile 01/11/2011 Cholesterol 231 mg/dL High 120-200 HDL 56 mg/dL 30-70 Triglycerides 187 mg/dL 30-200 HDL Risk Factor 4.1 CALC High 0.0-4.0 LDL (Calculated) 137 CALC High 0-129 VLDL (Calculated) 37 mg/dL 0-50 Comprehensive Metabolic Prof 05/15/2010 Albumin 4.3 g/dL 3.8-5.5 Alk. Phos. 46 U/L 22-95 Alt (SGPT) 39 U/L 10-40 Ast (Sgot) 24 U/L 5-34 BUN 16 mg/dL 6-26 Calcium 9.3 mg/dL 8.6-10.2 Chloride 100 mEq/L 94-112 Creatinine 1.1 mg/dL 0.6-1.4 Carbon Dioxide 31 mEq/L 21-32 Glucose 100 mg/dL 70-105 Sodium 140 mEq/L 134-149 Total Bilirubin 0.6 mg/dL 0.2-1.3 Total Protein 6.9 g/dL 6.3-8.1 Potassium 4.5 mEq/L 3.6-5.5 Globulin 2.5 g/dL 2.0-4.8 A/G Ratio 1.7 Calc 0.6-2.2 BUN/Creat Ratio 13.9 Calc 8.0-36.0 Laboratory test finding 05/15/2010 Free T4 1.15 ng/dL 0.75-1.54 TSH 1.27 mIU/L 0.50-6.00 Lipid Profile 05/15/2010 Cholesterol 199 mg/dL 120-200 HDL 55 mg/dL 30-70 Triglycerides 161 mg/dL 30-200 HDL Risk Factor 3.6 CALC Low 4.2-7.0 LDL (Calculated) 111 CALC 0-129 VLDL (Calculated) 32 mg/dL 0-50 CBC ([facility]) 05/15/2010 WBC 9.2 3.6-9.6 RBC 4.91 3.90-5.70 Hemoglobin (Fma/CMC/CTX) 16.4 g/dL 12.1 - 17.2 Hematocrit (Fma/CMC/CTX) 46.0 % 36.1 - 50.3 Mean Corpuscular Vol 93.7 82.2-97.4 Mean Corpuscular Hemaglobin 33.4 High 27.6-33.3 Mean Corpuscular Hemo Concen 35.7 33.0-36.0 Platelets 189 10^3/ul 150-400 Lymph% 33.1 20.5-51.1 Mixed% 10.2 Neutrophils % 56.7 RDW 14.2 High 11.6-13.7 Mean Platelet Volume 10.3 7.4-10.4 Lipid Profile 10/26/2009 Cholesterol 204 mg/dL High 120-200 HDL 49 mg/dL 30-70 Triglycerides 193 mg/dL 30-200 HDL Risk Factor 4.1 CALC Low 4.2-7.0 LDL (Calculated) 116 CALC 0-129 VLDL (Calculated) 39 mg/dL 0-50 Hepatic 10/26/2009 Albumin 4.5 g/dL 3.8-5.5 Alk. Phos. 59 U/L 22-95 Alt (SGPT) 37 U/L 10-40 Ast (Sgot) 27 U/L 5-34 Total Bilirubin 0.6 mg/dL 0.2-1.3 Total Protein 7.2 g/dL 6.3-8.1 Direct Bilirubin 0.3 mg/dL 0.0-0.6 Globulin 2.7 g/dL 2.0-4.8 A/G Ratio 1.7 Calc 0.6-2.2 Indirect Bilirubin 0.34 0.10-1.00 Comprehensive Metabolic Prof 09/10/2008 Albumin 4.3 g/dL 3.8-5.5 21 Alk. Phos. 44 U/L 22-95 21 Alt (SGPT) 28 U/L 10-40 21 Ast (Sgot) 21 U/L 5-34 21 BUN 16 mg/dL 6-26 21 Calcium 9.2 mg/dL 8.6-10.2 21 Chloride 102 mEq/L 94-112 21 Creatinine 1.3 mg/dL 0.6-1.4 21 Carbon Dioxide 26 mEq/L 21-32 21 Glucose 107 mg/dL High 70-105 21 Sodium 141 mEq/L 134-149 21 Total Bilirubin 0.6 mg/dL 0.2-1.3 21 Total Protein 7.2 g/dL 6.3-8.1 21 Potassium 4.2 mEq/L 3.6-5.5 21 Globulin 2.9 g/dL 2.0-4.8 21 A/G Ratio 1.5 Calc 0.6-2.2 21 BUN/Creat Ratio 12.7 Calc 8.0-36.0 21 Lipid Profile 09/10/2008 Cholesterol 196 mg/dL 120-200 21 HDL 48 mg/dL 30-70 21 Triglycerides 104 mg/dL 30-200 21 HDL Risk Factor 4.1 CALC Low 4.2-7.0 21 LDL (Calculated) 127 CALC 0-129 21 VLDL (Calculated) 21 mg/dL 0-50 21 Manual Differential 04/01/2008 S. Neutrophils 39 % Low 45-75 21 B. Neutrophils 6 % 0-6 21 Metamyelocytes - 21 Myelocytes - 21 Promyelocytes - 21 Nucleated RBC - 21 Blast Cells - 21 Lymphocytes 44 % 20-45 21 Atypical Lymphs 6 % 21 Monocytes 1 % 0-10 21 Eosinophils 3 % 0-5 21 Basophils 1 % 0-2 21 Polychromasia - 21 Hypochromasia - 21 Poikilocytosis - 21 Target Cells - 21 Spherocytosis - 21 Anisocytosis - 21 Microcytosis - 21 Sickle Cells - 21 Basophilic Stippling - 21 Vacuoles - 21 Toxic Granulation - 21 Macrocytosis - 21 Platelet Estimate ADEQUATE 21 Morphology NORMAL 21 Morphology Comment 1 - 21 Morphology Comment 2 - 21 Morphology Comment 3 - 21 Morphology Comment 4 - 21 Hemogram W/PLT 04/01/2008 WBC 8.6 x10^3/u 3.6-9.6 21 HCT 49 % 36-50 21 HGB 16.5 g/dL 12.1-17.2 21 MCH 32.1 pg 27.6-33.3 21 MCV 94.8 fL 82.2-97.4 21 MCHC 33.9 g/dL 33.0-35.5 21 PLT 238 x10^3/u 150-400 21 RBC 5.14 x10^6/u 3.90-5.70 21 RDW 13.6 % 11.6-13.7 21 Laboratory test 04/01/2008 Monospot NEGATIVE-CONFIRMED finding ([facility]) Comprehensive 03/17/2008 Albumin 4.1 g/dL 3.8-5.5 21 Metabolic Prof Alk. Phos. 55 U/L 22-95 21 Alt (SGPT) 32 U/L 10-40 21 Ast (Sgot) 23 U/L 5-34 21 BUN 16 mg/dL 6-26 21 Calcium 9.4 mg/dL 8.6-10.2 21 Chloride 103 mEq/L 94-112 21 Creatinine 1.3 mg/dL 0.6-1.4 21 Carbon Dioxide 28 mEq/L 21-32 21 Glucose 101 mg/dL 70-105 21 Sodium 140 mEq/L 134-149 21 Total Bilirubin 0.5 mg/dL 0.2-1.3 21 Total Protein 7.1 g/dL 6.3-8.1 21 Potassium 4.7 mEq/L 3.6-5.5 21 Globulin 3.0 g/dL 2.0-4.8 21 A/G Ratio 1.3 Calc 0.6-2.2 21 BUN/Creat Ratio 11.9 Calc 8.0-36.0 21 Lipid Profile 03/17/2008 Cholesterol 210 mg/dL High 120-200 21 HDL 47 mg/dL 30-70 21 Triglycerides 178 mg/dL 30-200 21 HDL Risk Factor 4.5 CALC 4.2-7.0 21 LDL (Calculated) 127 CALC 0-129 21 VLDL (Calculated) 36 mg/dL 0-50 21 Lipid Profile 09/17/2007 Cholesterol 223 mg/dL High 120-200 21 HDL 39 mg/dL 30-70 21 Triglycerides 115 mg/dL 30-200 21 HDL Risk Factor 5.7 CALC 4.2-7.0 21 LDL (Calculated) 161 CALC High 0-129 21 VLDL (Calculated) 23 mg/dL 0-50 21 Hepatic 09/17/2007 Albumin 4.4 g/dL 3.8-5.5 21 Alk. Phos. 61 U/L 21 Alt (SGPT) 35 U/L 10-40 21 Ast (Sgot) 25 U/L 5-34 21 Total Bilirubin 0.5 mg/dL 0.2-1.3 21 Total Protein 7.8 g/dL 6.3-8.1 21 Direct Bilirubin 0.3 mg/dL 0.0-0.6 21 Globulin 3.4 g/dL 2.0-4.8 21 A/G Ratio 1.3 Calc 0.6-2.2 21 Indirect Bilirubin 0.20 0.10-1.00 21 Lipid Profile 06/18/2007 Cholesterol 209 mg/dL High 120-200 21 HDL 54 mg/dL 30-70 21 Triglycerides 143 mg/dL 30-200 21 HDL Risk Factor 3.9 CALC Low 4.2-7.0 21 LDL (Calculated) 127 CALC 0-129 21 VLDL (Calculated) 29 mg/dL 0-50 21 Comprehensive Metabolic Prof 06/18/2007 Albumin 4.1 g/dL 3.8-5.5 21 Alk. Phos. 66 U/L 21 Alt (SGPT) 33 U/L 10-40 21 Ast (Sgot) 24 U/L 5-34 21 BUN 11 mg/dL 6-26 21 Calcium 9.7 mg/dL 8.6-10.2 21 Chloride 103 mEq/L 94-112 21 Creatinine 1.1 mg/dL 0.6-1.4 21 Carbon Dioxide 31 mEq/L 21-32 21 Glucose 107 mg/dL High 70-105 21 Sodium 136 mEq/L 134-149 21 Total Bilirubin 0.8 mg/dL 0.2-1.3 21 Total Protein 7.5 g/dL 6.3-8.1 21 Potassium 4.2 mEq/L 3.6-5.5 21 Globulin 3.4 g/dL 2.0-4.8 21 A/G Ratio 1.2 Calc 0.6-2.2 21 BUN/Creat Ratio 9.9 Calc 8.0-36.0 21 Basic Metabolic Panel Stat 09/30/2006 One Over Creatinine 0.90 Anion Gap 6.0 mmol/L 2-11 22 BUN 9 mg/dL 6-24 Calcium 9.6 mg/dL 8.7-10.2 Chloride 106 mmol/L 101-111 Co2 (Carbon Dioxide) 28.0 mmol/L 22-32 Glucose 108 mg/dL High 70-105 Potassium 3.9 mmol/L 3.5-5.0 Sodium 140 mmol/L 135-145 BUN/Creatinine Ratio 8.2 8-20 Creatinine 1.1 mg/dL 0.5-1.4 Laboratory test finding 09/30/2006 Troponin-I (TnI) 0.01 NG/ML 0-0.06 23 CBC With Electronic Diff Stat 09/30/2006 White Blood Count 7.5 CUMM 4.8- 10.8 Abs Basophils 0 0-0.2 Abs Eosinophils 0.2 0-0.6 Absolute Neutrophil Count 4.4 1.5-7.7 Abs Lymphs 2.4 1.0-4.8 Abs Mononuclear 0.6 0-0.8 Basophil % 0.4 % 0-2 Hematocrit 47 % 42-52 Hemoglobin 16.1 g/dL 14.0-18.0 Eosinophil % 2.2 % 0-6 Gran % 57.9 % 38-83 Lymph % 31.7 % 20-45 Mean Corpuscular HGB Cone 34 g/dL 32-36 Mean Corpuscular Hemoglob 32 pg High 27-31 Mean Corpuscular Volume 94 um3 80-94 Mean Platelet Volume 8.9 um3 7.4-10.4 Mononuclear % 7.8 % 1-9 Platelet Count 230 CUMM 150-450 Red Cell Count 5.01 CUMM 4.6-6.2 Redcell Distribution WDTH 14 % 10.5-15 Lipid Profile([facility]ma) Male 08/06/2006 Cholesterol 194 mg/dL 120-200 ([facility]ma/[facility]) Triglyceride 154 mg/dL 30-200 HDL Cholesterol ([facility]ma) Male 37 mg/dL 30-70 LDL, Calculated ([facility]ma/[facility]) 127 CALC 0-129 VLDL 31 0-50 HDL Risk Factor ([facility]ma) 5.3 CALC 4.2-7.0 Comp Metabolic ([facility]) Male 08/06/2006 Glucose, Serum ([facility]ma/CMC/CTX) 104 mg/dL 70-105 BUN ([facility]ma/[facility]) 14 mg/dL 6-26 Creatinine ([facility]ma/[facility]/CTX) 1.1 mg/dL 0.6-1.4 BUN/Creatinin Ratio 12.2 8.0-36 Sodium 144 134-149 Potassium 4.1 3.6-5.5 Chloride 99 mEq/L 94-112 Co2 27 21-32 Calcium ([facility]ma/[facility]) 10.1 mg/dL 8.6-10.2 Total Protein 7.3 g/dL 6.3-8.1 Albumin ([facility]ma/[facility]) 4.3 3.8-5.5 Globulin 3.0 2.0-4.8 A/G Ratio ([facility]ma/[facility]) 1.4 0.6-2.2 Alk Phos ([facility]ma) Male 56 U/L 22-95 Alt-M SGPT Male ([facility]ma) 33 10-40 Ast Sgot 19 U/L 5-34 Bilirubin, Total 0.8 mg/dL 0.2-1.3 Laboratory test finding 02/08/2006 Rubella Titer Igg AB 2.53 Index 24, 25 Rubeola Titer Igg AB 2.26 Index 24, 26 Laboratory test finding 01/14/2006 [facility] [place]OP;CBC See Image Report Liver Function ([facility]) 11/06/2005 Total Protein 7.0 g/dL 6.3-8.1 Albumin ([facility]ma/[facility]) 4.2 3.8-5.5 A/G Ratio ([facility]ma/[facility]) 1.5 0.6-2.2 Globulin 2.8 2.0-4.8 Alkaline Phosphatase (F/C/CTX) 63 U/L 30-110 Alt (SGPT) ([facility]) 32 10-40 Ast (Sgot) ([facility]ma/[facility]) 23 U/mL 5-34 Bilirubin, Total 0.7 mg/dL 0.2-1.3 Bilirubin, Direct 0.1 mg/dL 0-0.6 Bilirubin, Indirect 0.58 ml/dl 0.10-1.0 Lipid Profile(a) Male 11/06/2005 Cholesterol 200 mg/dL 120-200 Triglyceride 116 mg/dL 30-200 HDL Cholesterol ([facility]ma) Male 52 mg/dL 30-70 LDL, Calculated ([facility] [place] 125 CALC 0-129 LDL Direct ([facility]) - mg/dL 0-130 VLDL 23 0-50 HDL Risk Factor (Fma) 3.9 CALC Low 4.2-7.0 Liver Function ([facility]) 08/22/2005 Total Protein 7.2 g/dL 6.3-8.1 Albumin ([facility]) 4.2 3.8-5.5 A/G Ratio [place] [place] 1.4 0.6-2.2 Globulin 2.9 2.0-4.8 Alkaline Phosphatase (F/C/CTX) 65 U/L 30-110 Alt (SGPT) ([facility] [place] 47 RESULT DELROY'D High 10-40 Ast (Sgot) ([facility] [place] 30 U/mL 5-34 Bilirubin, Total 0.7 mg/dL 0.2-1.3 Bilirubin, Direct 0.3 mg/dL 0-0.6 Bilirubin, Indirect 0.43 ml/dl 0.10-1.0 Lipid Profile([facility]) Male 08/22/2005 Cholesterol 212 mg/dL High 120-200 Triglyceride 210 mg/dL High 30-200 HDL Cholesterol ([facility]ma) Male 47 mg/dL 30-70 LDL, Calculated [place] [place] 124 CALC 0-129 LDL Direct ([facility]) - mg/dL 0-130 VLDL 42 0-50 HDL Risk Factor (a) 4.5 CALC 4.2-7.0 Laboratory test finding 07/16/2005 Sedimentation Rate 4 MM/HR 0-15 C-Reactive Protein 0.2 mg/dL 0.0-0.5 Laboratory test finding 07/16/2005 TSH ([facility] [place] 1.55 uIU/ml 0.5- 6.0 Free T4 1.03 ng/dL 0.75-1.54 Liver Function ([facility]) 05/17/2005 Total Protein 7.2 g/dL 6.3-8.1 Albumin ([facility]) 4.2 3.8-5.5 A/G Ratio ([facility]) 1.4 0.6-2.2 Globulin 3.0 2.0-4.8 Alkaline Phosphatase (F/C/CTX) 73 U/L 22-95 Alt (SGPT) (a/[facility]) 29 7-35 Ast (Sgot) ([facility]) 19 U/mL 5-34 Bilirubin, Total 1.0 mg/dL 0.2-1.3 Bilirubin, Direct 0.3 mg/dL 0-0.6 Bilirubin, Indirect 0.69 ml/dl 0.10-1.0 Lipid Profile([facility]) Male 05/17/2005 Cholesterol 167 mg/dL 120-200 Triglyceride 75 mg/dL 30-200 HDL Cholesterol ([facility]) Male 55 mg/dL 30-70 LDL, Calculated ([facility] 97 CALC 0-129 LDL Direct (/[facility]) - mg/dL 0-130 VLDL 15 0-50 HDL Risk Factor (a) 3.1 CALC Low 4.2-7.0 Lipid Profile([facility]) Male 03/02/2005 Cholesterol 256 mg/dL High 120-200 Triglyceride 164 mg/dL 30-200 HDL Cholesterol (a) Male 32 mg/dL 30-70 LDL, Calculated ([facility] 191 CALC High 0-129 LDL, Direct - mg/dL 0-130 VLDL 33 0-50 HDL Risk Factor (a) 8.0 CALC High 4.2-7.0 Comp Metabolic ([facility] 11/01/2004 Sodium 141 mmol/L 135-145 Potassium 4.3 mmol/L 3.5-5.0 Chloride 110 mmol/L 101-111 Co2 27.0 mmol/L 22-32 Anion Gap 4.0 mmol/L 2-11 Glucose, Serum (a/[facility]CTX) 110 mg/dL High 70-105 BUN ([facility]) 11 mg/dL 6-24 Creatinine (a/[facility]CTX) 1.3 mg/dL 0.5-1.4 BUN/Creatinin Ratio 8.5 8-20 Calcium (a/[facility]) 9.6 mg/dL 8.7-10.2 Total Protein 6.8 GM/DL 6.2-8.1 Albumin ([facility]) 3.8 3.6-5.4 Globulin 3.0 2-4 A/G Ratio ([facility]) 1.3 1-3 Bilirubin, Total 0.5 mg/dL 0.4-1.5 Alkaline Phosphatase (F/C/CTX) 61 U/L 39-117 Alt (SGPT) (a/[facility]) 47 17-63 Ast (Sgot) (a/[facility]) 33 12-42 Laboratory test finding 11/01/2004 Amylase 70 U/L 30-125 Lipase ([facility]) 41 U/L 22-51 CBC W/ Manual Diff ([facility]) 11/01/2004 WBC 9.9 CUMM 4.8-10.8 RBC 4.96 CUMM 4.6-6.2 Hemoglobin (a/[facility]/CTX) 16.3 g/dL 14.0-18.0 Hematocrit (a/[facility]CTX) 48 % 42-52 Mean Corpuscular Vol 96 UM3 High 80-94 Mean Corpuscular Hemaglobin 33 pg High 27-31 Mean Corpuscular Hemo Concen 34 g/dL 32-36 RDW 13 10.5-15 Platelets 260 CUMM 150-450 Mean Platelet Volume 8.1 7.4-10.4 Poly From [facility] 39 38-83 Band 2 0-8 Lymph From [facility] 38 5-47 Monocytes 6 % 0-13 Eosinophils 5 0-6 Atypical Lymph 9 High 0-6 Morphology - Basophils 1 Laboratory test finding 11/01/2004 Anisocytosis SLIGHT Lipid Profile([facility]) Male 08/23/2004 Cholesterol 239 mg/dL High 120-200 Triglyceride 110 mg/dL 30-200 HDL Cholesterol ([facility]) Male 43 mg/dL 30-70 LDL, Calculated ([facility] 174 CALC High 0-129 LDL, Direct - mg/dL 0-130 VLDL 22 0-50 HDL Risk Factor ([facility]) 5.6 CALC 4.2-7.0 Basic Metabolic ([facility]) 08/08/2004 Sodium 139 mmol/L 135-145 Potassium 4.0 mmol/L 3.5-5.0 Chloride 105 mmol/L 101-111 Co2 27.0 mmol/L 22-32 Anion Gap 7.0 mmol/L 2-11 Glucose, Serum ([facility]/CTX) 108 mg/dL High 70-105 BUN ([facility]) 11 mg/dL 6-24 Creatinine ([facility]ma/[facility]/CTX) 1.2 mg/dL 0.5-1.4 BUN/Creatinin Ratio 9.2 8-20 Calcium ([facility]) 9.9 mg/dL 8.7-10.2 Laboratory test finding 08/08/2004 Troponin-I/TnI 0 ng/mL 0-0.06 27 CBC Electronic ([facility] 08/08/2004 WBC 7.4 CUMM 4.8-10.8 RBC 4.96 CUMM 4.6-6.2 Hemoglobin ([facility]/CTX) 16.5 g/dL 14.0-18.0 Hematocrit ([facility]/CTX) 48 % 42-52 Mean Corpuscular Vol 97 UM3 High 80-94 Mean Corpuscular Hemaglobin 33 pg High 27-31 Mean Corpuscular Hemo Concen 34 g/dL 32-36 RDW 14 10.5-15 Platelets 246 CUMM 150-450 Mean Platelet Volume 8.6 7.4-10.4 Granulocytes 53.6 % 38-83 Lymphocytes 35.3 % 20-45 Monocytes 7.7 % 1-9 Eosinophil 2.1 0-6 Basophil% 1.3 0-2 Abs Lymphs 2.6 1.0-4.8 Abs Mononuclear 0.6 0-0.8 Abs Grans 4.0 1.5-7.7 Abs Eosinophils 0.2 0-0.6 Abs Basophils 0.1 0-0.2 1 SEE RESULT BELOW Name: JOHN REEVES : [address]: Perfecto Cosme MD Acct: [id number] Unit: [id number] AGE: 58 Location: [facility] Re06/27/18 SEX: M Status: REG REF SPEC: [id number] ALY: 06/27/18-[address]: Perfecto Cosme MD REQ: [id number] RECD: 06/27/18 STATUS: COMP _ SOURCE: URINE SPDESC: ORDERED: Urine Culture COMMENTS: [id number] cano urine top Urine Source: Random Procedure Result Reported Site Urine Culture Final 06/29/18- 0932 ML No Growth (<1,000 CFU/mL) * - Main Lab . END OF REPORT DEPARTMENT OF PATHOLOGY, [address] [place] [address] Houston Rao M.D. Director [facility] # [id number] 2 SEE RESULT BELOW Name: JOHN REEVES : [address]: Delvis Hernandez MD Acct: [id number] Unit: [id number] AGE: 56 Location: [place] [address] Re01/29/17 SEX: M Status: ADM Wilfredo SPEC: [id number] ALY: 01/29/17-[address] [facility] [address]: Washington Baron MD REQ: [id number] RECD: 01/29/17-1229 STATUS: [facility]EN[facility] DR: Perfecto Cosme MD _ SOURCE: URINE SPDESC: ORDERED: Urine Culture Procedure Result Reported Site Urine Culture Final 01/30/17- 1246 ML No Growth (<1,000 CFU/mL) * ML - MAIN LAB ([facility]) . END OF REPORT * ML=Testing performed at Main Lab DEPARTMENT OF PATHOLOGY, [address] [place] [address] Houston Rao M.D. Director [facility] # [id number] 3 Result TnIDx:0.08 Called to [id number] at: 11:29:48 by: Read back by: [id number] 99th percentile=0.04 ng/mL Troponin results at [facility] and [facility] are not interchangeable. 4 Acute inflammation: >10.00 5 Because ethnic data is not always readily available, this report includes an eGFR for both -Americans and non- Americans. The National Kidney Disease Education Program (NKDEP) does not endorse the use of the MDRD equation for patients that are not between the ages of 18 and 70, are , have extremes of body size, muscle mass, or nutritional status, or are non- or non-. According to the National Kidney Foundation, irrespective of diagnosis, the stage of the disease is based on the level of kidney function: Stage Description GFR(mL/min/1.73 m(2)) 1 Kidney damage with normal or decreased GFR 90 2 Kidney damage with mild decrease in GFR 60-89 3 Moderate decrease in GFR 30-59 4 Severe decrease in GFR 15-29 5 Kidney failure <15 (or dialysis) 6 [facility] Severe Sepsis and Septic Shock Management Bundle Measure requires all lactic acids initially measuring >2.0 mmol/L be repeated. 7 >100 to <200 pg/mL: likely compensated congestive heart failure (CHF) 200 to 400 pg/mL: likely moderate CHF >400 pg/mL: likely moderate to severe CHF 8 Please note: The following may produce a false positive D Dimer test: - Rheumatoid factor greater than 60 IU/ml - Plasma hemoglobin greater than 0.05 gm/dl - Bilirubin greater than 50 mg/dl - Lipids greater than 1000 mg/dl - FDP greater than 20 ug/ml 9 SEE RESULT BELOW Name: JOHN REEVES : [address]: Te Hawkins MD Acct: [id number] Unit: [id number] AGE: 56 Location: [facility] Re08/06/16 SEX: M Status: REG REF SPEC: [id number] ALY: 08/06/16-[address] [facility] [address]: Te Hawkins MD REQ: [id number] RECD: 08/06/168110 STATUS: JORGE WEST DR: Perfecto Cosme MD _ ORDERED: ACTIN STAIN, LEVEL IV/4, [id number], [id number] FINAL DIAGNOSIS 1. Colon, sigmoid, biopsy: -- Tubular adenoma. -- No high grade dysplasia or malignancy. 2. Colon, proximal sigmoid, biopsy: --Submucosal leiomyoma (2 mm). See comment. 3. Colon, mid rectum, biopsy: -- Tubular adenoma. -- No high grade dysplasia or malignancy. 4. Colon, proximal rectal nodule, biopsy: -- Hyperplastic polyp. Comment: The following immunochemical stains are performed with appropriate controls on part 2 and support the above rendered diagnosis. S100 negative Smooth muscle actin positive C-KIT (CD117) negative CLINICAL HISTORY First exam, no problems. Negative family history; no past surgical history POST-OPERATIVE DIAGNOSIS Colonoscopy to cecum with ease - angulated at 40 cm., hard check and stiffening, 1+ sigmoid diverticulosis. Conclusions/Plan: Diverticulosis, polyps (four); 5 years CONTINUED ON NEXT PAGE * ML=Testing performed at Main Lab DEPARTMENT OF PATHOLOGY, [address] [place] [address] Houston Rao M.D. Director [facility] # [id number] RUN DATE: 08/08/16 [facility] LAB LIVE PAGE 2 Patient: JOHN REEVES [id number] (Continued) GROSS DESCRIPTION (Continued) GROSS DESCRIPTION 1. The specimen is received in formalin labeled, Sigmoid Colon Polyp, and consists of a 0.3 x 0.3 x 0.2 cm wolf-pink polypoid soft tissue fragment, which is submitted entirely in one cassette. 2. The specimen is received in formalin labeled, Biopsy Proximal Sigmoid Polyp, and consists of a 0.3 x 0.2 x 0.2 cm wolf-pink polypoid soft tissue fragment, which is inked and submitted entirely in one cassette. 3. The specimen is received in formalin labeled, Mid-Rectal Polyp, and consists of two wolf-pink irregular to polypoid soft tissue fragments measuring 0.4 x 0.3 x 0.2 cm and 0.6 x 0.3 x 0.2 cm, which are submitted entirely in one cassette. 4. The specimen is received in formalin labeled, Biopsy Proximal Rectal Nodule, and consists of a 0.3 x 0.3 x 0.3 cm wolf-pink polypoid soft tissue fragment, which is submitted entirely in one cassette. Signed (signature on file) Houston Rao MD [id number] END OF REPORT * ML=Testing performed at Main Lab DEPARTMENT OF PATHOLOGY, [address] [place] [address] Houston Rao M.D. Director [facility] # [id number] 10 RESULTS VERIFIED BY REPEAT ANALYSIS 11 RESULTS VERIFIED BY REPEAT ANALYSIS 12 result delroy'd 13 RESULT DELROY'D 14 2 SSTS 15 Positive: 5 of the following Borrelia-specific bands: 18,23,28,30,39,41,45,58, 66, and 93. Negative: No bands or banding patterns which do not meet positive criteria. 16 Note: An equivocal or positive EIA result followed by a negative Western Blot result is considered NEGATIVE. An equivocal or positive EIA result followed by a positive Western Blot is considered POSITIVE by the CDC. . Positive: 2 of the following bands: 23,39 or 41 Negative: No bands or banding patterns which do not meet positive criteria. Criteria for positivity are those recommended by CDC/ASTPHLD. p23=Osp C, e93=chfybeqww . Note: Sera from individuals with the following may cross react in the [place] Western Blot assays: other spirochetal diseases (periodontal disease, leptospirosis, relapsing fever, yaws, and pinta); connective autoimmune (Rheumatoid Arthritis and Systemic Lupus Erythematosus and also individuals with Antinuclear Antibody); other infections ([place] Spotted Fever; [place] Virus, and Cytomegalovirus). . 17 Anion gap measurement may be of limited value in the presence of any alkalosis, especially in a combined acid base disorder. . 18 A metabolite of Naproxen, O-desmethylnaproxen, has been shown to interfere with the Jendrassik-Yefri method for measuring total bilirubin. Samples from patients who have taken Naproxen have shown spurious elevation in total bilirubin levels. 19 Because ethnic data is not always readily available, this report includes an eGFR for both -Americans and non- Americans. The National Kidney Disease Education Program (NKDEP) does not endorse the use of the MDRD equation for patients that are not between the ages of 18 and 70, are , have extremes of body size, muscle mass, or nutritional status, or are non- or non-. According to the National Kidney Foundation, irrespective of diagnosis, the stage of the disease is based on the level of kidney function: Stage Description GFR(mL/min/1.73 m(2)) 1 Kidney damage with normal or decreased GFR 90 2 Kidney damage with mild decrease in GFR 60-89 3 Moderate decrease in GFR 30-59 4 Severe decrease in GFR 15-29 5 Kidney failure <15 (or dialysis) 20 New Reference Range and Interpretation effective 07/31/2002 TnI (ng/ml) INTERPRETATION Less Than 0.06 ng/mL NOT SUPPORTIVE OF DIAGNOSIS OF [place] 0.06 - 0.50 ng/ml INDETERMINATE: SUGGEST SERIAL STUDIES IF CLINICALLY INDICATED. Greater than 0.5 ng/mL CONSISTENT WITH DIAGNOSIS OF [place] . 21 FASTING 22 Anion gap measurement may be of limited value in the presence of any alkalosis, especially in a combined acid base disorder. . 23 New Reference Range and Interpretation effective 07/31/02 TnI (ng/ml) INTERPRETATION <0.06 ng/ml NOT SUPPORTIVE OF DIAGNOSIS OF [place] 0.06 - 0.50 ng/ml INDETERMINATE: SUGGEST SERIAL STUDIES IF CLINICALLY INDICATED. > 0.5 ng/ml CONSISTENT WITH DIAGNOSIS OF [place] . 24 1 SST 25 < .90 Neg (No Immunity) .91- 1.09 Equivocal >=1.10 Positive . 26 < 0.90 Neg (No Immunity) 0.91- 1.09 Equivocal >=1.10 Positive . 27 TnI INTERPRETATION <0.06 NG/ML NOT SUPPORTIVE OF DIAGNOSIS OF [place] 0.06-0.5 NG/ML INDETERMINATE; SUGGEST SERIAL STUDIES IF CLINICALLY INDICATED. >0.5 NG/ML CONSISTENT WITH DIAGNOSIS OF [place] Procedures Date CPT Code Description Status 01/22/2018 65022 Nebulizer Treatment Completed 08/23/2016 Colonoscopy Completed 04/24/2016 85382 Electrocardiogram Complete Completed 11/07/2011 40201 Pulse Oximetry Completed 03/17/2011 40884 Pulse Oximetry Completed 03/17/2011 94776 Nebulizer Treatment Completed 03/17/2011 18946 Electrocardiogram Complete Completed 01/11/2011 62828 Pulse Oximetry Completed 04/01/2008 58277 Electrocardiogram Complete Completed 01/14/2006 02153 Pulse Oximetry Completed 01/14/2006 24962 Electrocardiogram Complete Completed Encounters Type Date Location Provider CPT E/M Dx Office Visit 06/27/2018 8:20a Main Office Perfecto Cosme M.D. 82264 Z00.00 I10 E78.4 K21.9 I48.0 F17.210 N40.0 R21 R82.99 Office Visit 03/04/2018 5:20p Main Office Perfecto Cosme M.D. 51360 I10 E78.4 F17.210 K21.9 I48.0 Office Visit 01/22/2018 10:30a [place] [address] J20.9 Office Visit 11/20/2017 10:45a [facility] [place] [address] J11.1 J20.9 Office Visit 10/08/2017 6:20p Main Office Perfecto Cosme M.D. 03066 I10 E78.4 F17.210 K21.9 Office Visit 09/12/2017 11:20a [facility] Perfecto Cosme M.D. 03761 J01.80 J20.9 Office Visit 08/12/2017 10:10a Main Office Perfecto Cosme M.D. 76081 J01.80 I10 Office Visit 05/28/2017 5:00p Main Office Perfecto Cosme M.D. 85418 I10 E78.4 F17.210 I48.0 Office Visit 02/04/2017 1:00p Main Office Perfecto Cosme M.D. 87880 I48.0 I10 E78.4 Office Visit 01/28/2017 4:00p Main Office Perfecto Cosme M.D. 49886 I10 E78.4 F17.210 Office Visit 11/01/2016 10:15a Main Office Tiffanytyra Cao, [facility] 17884 R05 J20.9 Office Visit 09/28/2016 8:40a Main Office Perfecto Cosme M.D. 90114 I10 E78.4 M54.5 Office Visit 09/17/2016 4:00p Main Office Perfecto Cosme M.D. 43795 R42 I10 E78.4 K21.9 Office Visit 05/04/2016 4:20p Main Office Perfecto Cosme M.D. 23552 R07.89 I10 E78.4 K21.9 Office Visit 04/24/2016 1:10p Main Office Perfecto Cosme M.D. 74902 R07.89 I10 E78.4 Office Visit 12/31/2015 11:00a Main Office Cezar Sandhu M.D. 03204 J06.9 Office Visit 11/25/2015 4:20p Main Office Perfecto Cosme M.D. 78268 Z00.00 I10 M25.562 E78.4 N40.0 Z23 Office Visit 10/27/2015 11:10a [facility] Perfecto Cosme M.D. 02440 I10 E78.4 M25.562 Office Visit 05/04/2015 9:15a Main Office [facility] [address] 916.4 E906.4 Office Visit 12/23/2014 11:10a [facility] Office Perfecto Cosme M.D. 93777 466.0 401.1 272.4 465.9 Office Visit 08/02/2014 3:10p Main Office Perfecto Cosme M.D. 68169 461.8 466.0 401.1 Office Visit 07/15/2014 3:40p Main Office Stuart Mckinley M.D. 60874 466.0 Office Visit 08/31/2013 10:00a Main Office Perfecto Cosme M.D. 87598 401.1 794.8 272.4 716.94 Office Visit 07/21/2013 7:10p Main Office Perfecto Cosme M.D. 25608 466.0 465.9 401.1 272.4 Office Visit 02/10/2013 12:40p Main Office Perfecto Cosme M.D. 90167 724.2 604.90 v03.82 Office Visit 11/10/2012 7:00p Main Office Perfecto Cosme M.D. 62124 465.9 709.9 401.1 Office Visit 10/06/2012 4:10p Main Office Perfecto Cosme M.D. 77035 466.0 461.8 401.1 Office Visit 09/11/2012 3:10p [facility] Perfecto Cosme M.D. 52500 465.9 466.0 401.1 Office Visit 08/08/2012 2:10p Main Office Perfecto Cosme M.D. 56092 465.9 466.0 714.89 Office Visit 06/06/2012 9:40a Main Office Perfecto Cosme M.D. 90413 401.1 272.4 300.00 Office Visit 11/23/2011 3:10p Main Office Perfecto Cosme M.D. 27871 786.50 466.0 461.9 401.1 272.4 Office Visit 11/07/2011 12:10p Main Office Cezar Sandhu M.D. 42907 466.0 Office Visit 10/05/2011 3:00p Main Office Perfecto Cosme M.D. 94519 401.1 272.4 300.00 Office Visit 09/13/2011 3:10p [facility] Office Perfecto Cosme M.D. 81991 401.1 300.00 272.4 Office Visit 08/08/2011 3:45p [facility] Office Dana Castanedarer, [facility] 56159 401.1 477.9 Office Visit 07/25/2011 4:00p [facility] Office Dana Cassie, [facility] 38911 466.0 Office Visit 04/05/2011 9:10a [facility] Office Perfecto Cosme M.D. 27428 401.1 272.4 786.50 300.00 Office Visit 03/17/2011 11:15a Main Office HI SheldonP 19003 466.0 401.1 272.4 Office Visit 01/11/2011 2:40p [facility] Office Perfecto Cosme M.D. 25625 461.9 466.0 401.1 272.4 300.00 Office Visit 07/31/2010 4:10p Main Office Perfecto Cosme M.D. 59870 535.50 401.1 300.00 Office Visit 07/24/2010 11:10a Main Office Perfecto Cosme M.D. 84074 789.06 787.01 401.1 300.00 Office Visit 06/08/2010 10:00a [facility] Office Perfceto Cosme M.D. 25107 300.00 401.1 783.21 Office Visit 05/25/2010 9:00a [facility] Office Perfecto Cosme M.D. 59545 780.79 783.21 401.1 300.00 Office Visit 05/15/2010 9:40a Main Office Perfecto Cosme M.D. 89613 780.79 783.21 272.4 401.1 Office Visit 11/28/2009 4:10p Main Office Perfecto Cosme M.D. 90723 465.9 461.9 401.1 Office Visit 08/15/2009 1:30p [facility] Mauri Mireles M.D. 79588 465.9 Office Visit 07/01/2009 2:20p Main Office Cezar Sandhu M.D. 18892 795.5 Office Visit 06/28/2009 3:15p [facility] Office Trice Dougherty 45375 V70.5 401.1 Office Visit 04/26/2009 4:40p Main Office Perfecto Cosme M.D. 50837 461.9 466.0 401.1 Office Visit 03/10/2009 9:10a [facility] Office Perfecto Cosme M.D. 02384 719.46 728.71 Office Visit 10/22/2008 11:00a Main Office Cezar Sandhu M.D. 61283 466.0 Office Visit 09/08/2008 2:10p Main Office Perfecto Cosme M.D. 31134 401.1 272.4 883.0 Office Visit 04/01/2008 9:45a [facility] Office CURTIS Sheldon 86042 786.2 110.9 786.50 Office Visit 03/17/2008 8:00a Main Office Perfecto Cosme M.D. 00207 401.1 272.4 305.1 300.00 Office Visit 01/14/2008 2:00p Main Office CURTIS Sheldon 89480 V70.5 786.2 Office Visit 09/29/2007 12:00p Main Office Perfecto Cosme M.D. 18405 465.9 466.0 272.4 Office Visit 09/17/2007 8:00a Main Office Perfecto Cosme M.D. 16018 401.1 272.4 300.00 Office Visit 08/28/2007 9:10a [facility] Office Perfecto Cosme M.D. 66946 465.9 466.0 Office Visit 07/14/2007 4:40p Main Office Perfecto Cosme M.D. 76137 401.1 272.4 300.00 429.2 305.1 Office Visit 06/18/2007 8:50a Main Office Perfecto Cosme M.D. 49698 401.1 272.4 300.00 429.2 Office Visit 01/16/2007 11:00a [facility] Office CURTIS Sheldon 16795 V70.5 Office Visit 10/03/2006 11:50a [facility] Office Perfecto Cosme M.D. 88275 786.50 272.4 V17.4 Office Visit 07/27/2006 11:10a Main Office Perfecto Cosme M.D. 11127 272.4 723.1 784.0 Office Visit 02/08/2006 9:30a Main Office HI SheldonP 87048 V70.5 Office Visit 01/14/2006 10:00a [facility] Office Jayesh Lundberg M.D. 44282 272.4 V17.4 786.50 Office Visit 11/21/2005 4:40p Main Office Perfecto Cosme M.D. 73447 719.42 719.46 272.4 Office Visit 09/05/2005 3:50p Main Office Perfecto Cosme M.D. 39061 272.4 727.09 Office Visit 07/23/2005 5:10p Main Office Perfecto Cosme M.D. 55831 272.4 Office Visit 07/16/2005 12:10p Main Office Perfecto Cosme M.D. 57864 789.00 786.50 719.40 272.4 Office Visit 07/11/2005 2:50p Main Office Perfecto Cosme M.D. 16682 272.4 719.40 Office Visit 03/15/2005 2:40p [facility] Office Perfecto Cosme M.D. 40583 272.4 Office Visit 08/09/2004 2:00p Main Office Perfecto Cosme M.D. 42144 786.50 Office Visit 04/05/2004 2:40p Main Office Perfecto Cosme M.D. 42876 461.9 465.9 Office Visit 09/06/2003 6:40p Main Office Perfecto Cosme M.D. 19725 466.0 786.50 530.81 Office Visit 07/23/2002 1:50p [facility] Perfecto Cosme M.D. 09457 Office Visit 06/17/2001 2:00p Main Office Perfecto Cosme M.D. 28521 Plan of Care Future Appointment(s):01/05/2019 8:00 am - Perfecto Cosme M.D. at Main [id number]/30/2018 - Flor Servin, NPR07.89 Other chest painComments:Try taking the omeprazole at bedtime for 4-5 nights in a row. I agree with Dr. Cosme that this doesnot sound like cardiac type chest pain.I10 Essential ( primary) hypertensionNew Medication:Indapamide 1.25 mgNew Labs:Comp Metabolic- ALL Lab CompaniComments:Call or return to the office if:* you get more than one blood pressure reading above 160/100 (even if only one of the numbers is high)* you feel close to passing out or actually pass out* you have new or worsening swelling in the ankles, legs, hands, or face* you develop palpiatations or funny heartbeatsAllComments:1. Patient has been queried about patient's goals/ preferences and functional/lifestyle goals at relevant visits. If relevant, describe: Has been discussed, noted above2. Treatment goals as explainedto the patient: see above3. Are there barriers to meeting treatment goals? Yes If Yes, please describe: Barriers include possible insurance limits, disease process, and difficulty with lifestyle changes4. Self-Management goals as described to the patient: Yes, see above As always, we strongly encourage a healthy diet and making physical activity a part of your every day life. If you have questions about how or where to start, please contact the office.
--- NOTE | 2018-10-02 13:13 | ED ---
Hypertension - HPI Summary HPI Summary: Pt is a 58 y/o male who presents to the ED c/o HTN. 4 days ago, he had some mild CP. This prompted the pt to go to his PCP, where he had a normal EKG and was put on Indapamide. However, these past few days hes still had high BP. This morning his BP was 190/128, and at 9:30 this morning he felt dizzy. He now feels normal. Pt has been on some form of BP medications since 2004, and his BP is normally 120/80. Pt denies any fever, chills, erythema, blurry vision, sore throat, CP, SOB, cough, abdominal pain, N/V, dysuria, hematuria, myalgia, edema , rash, or headache. FHx cardiac disease. PMHx HLD, angina, and AFib. Pts BP while in room is 143/86. He is a smoker and drinks alcohol daily. - History of Current Complaint Chief Complaint: EDHypertension Stated Complaint: POSS HIGH BLOOD PRESSURE Time Seen by Provider: 10/02/18 12:48 Hx Obtained From: Patient Onset/Duration: Started Days Ago - 4, Resolved Timing: Intermittent Associated Signs & Symptoms: Chest Pain, Dizziness Current Medications: Diuretic - Allergies/Home Medications Allergies/Adverse Reactions: Allergies Allergy/AdvReac Type Severity Reaction Status Date / Time No Known Allergies Allergy Verified 10/02/18 12:36 Home Medications: Home Medications Omeprazole 20 mg PO DAILY 10/02/18 [History Confirmed 10/02/18] PMH/Surg Hx/FS Hx/Imm Hx Endocrine/Hematology History: Denies: Hx Diabetes Cardiovascular History: Reports: Hx Angina, Hx Atrial Fibrillation, Hx Coronary Artery Disease, Hx Hypercholesterolemia - Controlled with medication., Hx Hypertension Denies: Hx Myocardial Infarction, Hx Pacemaker/ICD, Hx Valvular Heart Disease Respiratory History: Reports: Other Respiratory Problems/Disorders - SMOKER Denies: Hx Asthma, Hx Chronic Obstructive Pulmonary Disease (COPD) Sensory History: Denies: Hx Contacts or Glasses, Hx Hearing Aid Opthamlomology History: Denies: Hx Contacts or Glasses Psychiatric History: Denies: Hx Anxiety, Hx Depression, Hx Panic Disorder - Surgical History Surgery Procedure, Year, and Place: TONSILECTOMY A CHILD,. [facility] HEART CATHERIZATION(NO STENTS), [facility] [place] HEART CATHERIZATION (NO STENTS), [place] Hx Anesthesia Reactions: No - LOCAL WITH CATHERIZATIONS Infectious Disease History: No Infectious Disease History: Denies: Traveled Outside the [place] in Last 30 Days - Family History Known Family History: Positive: Cardiac Disease, Other - No family history of malignant hyperthermia or anesthesia reaction. - Social History Alcohol Use: Daily Hx Substance Use: No Substance Use Type: Reports: None Hx Tobacco Use: Yes Smoking Status (MU): Light Every Day Tobacco Smoker Type: Cigarettes Amount Used/How Often: 5-6 Length of Time of Smoking/Using Tobacco: 40 YEARS Have You Smoked in the Last Year: Yes Review of Systems Negative: Fever, Chills Negative: Blurred Vision, Erythema Negative: Sore Throat Positive: Chest Pain Negative: Shortness Of Breath, Cough Negative: Abdominal Pain, Vomiting, Nausea Negative: dysuria, hematuria Negative: Myalgia, Edema Negative: Rash Neurological: Other - Dizziness Negative: Headache All Other Systems Reviewed And Are Negative: Yes Physical Exam - Summary Physical Exam Summary: Constitutional: Well-developed, Well-nourished, Alert. (-) Distressed Skin: Warm, Dry HENT: Normocephalic; Atraumatic Eyes: Conjunctiva normal Neck: Musculoskeletal ROM normal neck. (-) JVD, (-) Stridor, (-) Tracheal deviation Cardio: Rhythm regular, rate normal, Heart sounds normal; Intact distal pulses; The pedal pulses are 2+ and symmetric. Radial pulses are 2+ and symmetric. (-) Murmur Pulmonary/Chest wall: Effort normal. (-) Respiratory distress, (-) Wheezes, (-) Rales Abd: Soft, (-) epigastric tenderness, (-) Distension, (-) Guarding, (-) Rebound Musculoskeletal: (-) Edema Lymph: (-) Cervical adenopathy Neuro: Alert, Oriented x3 Psych: Mood and affect Normal Triage Information Reviewed: Yes Vital Signs On Initial Exam: Initial Vitals Temp Pulse Resp BP Pulse Ox 98.3 F 55 18 135/86 97 10/02/18 12:13 10/02/18 12:13 10/02/18 12:13 10/02/18 12:13 10/02/18 12:13 Vital Signs Reviewed: Yes Diagnostics - Vital Signs Vital Signs Temp Pulse Resp BP Pulse Ox 10/02/18 12:33 55 96 10/02/18 12:32 60 167/96 95 10/02/18 12:22 140/88 10/02/18 12:13 98.3 F 55 18 135/86 97 - Laboratory Result Diagrams: 10/02/18 13:43 10/02/18 13:43 Lab Statement: Any lab studies that have been ordered have been reviewed, and results considered in the medical decision making process. - EKG 13:27 Cardiac Rate: Bradycardia - 50 bpm EKG Rhythm: Sinus Rhythm Hypertension Course/Dx - Course Course Of Treatment: Pt is a 58 y/o male who presents to the ED c/o HTN. 4 days ago, he had some mild CP. This prompted the pt to go to his PCP, where he had a normal EKG and was put on Indapamide. However, these past few days hes still had high BP. This morning his BP was 190/128, and at 9:30 this morning he felt dizzy. He now feels normal. Pt has been on some form of BP medications since 2004, and his BP is normally 120/80. Pt has no active symptoms, and there are no signs of hypertensive emergency. Final dx is uncontrolled HTN, and pt is discharged to follow up with Dr. Cosme. - Diagnoses Provider Diagnoses: Uncontrolled hypertension - Physician Notifications Discussed Care Of Patient With: ePrfecto Cosme Time Discussed With Above Provider: 14:55 Instructed by Provider To: Other - Start pt on 5 mg Amlodipine daily and discontinue Indapimide. Dr. Cosme is not concerned about the bradycardia. Pt had a negative nuclear stress test last year. Will see pt in office at 10:40 AM on 10/04/18. Discharge - Sign-Out/Discharge Documenting (check all that apply): Patient Departure - Discharge - Discharge Plan Condition: Stable Disposition: HOME Prescriptions: amLODIPine TAB* [Norvasc 5 mg TAB*] 5 mg PO DAILY #7 tab Patient Education Materials: Hypertension (ED) Referrals: Perfecto Cosme MD [Primary Care Provider] - (THIS Saturday10/04/18 AT 1040 AM) Additional Instructions: RETURN TO THE ED WITHA [place] NEW OR WORSENING SYMPTOMS. - Attestation Statements Document Initiated by Scribe: Yes Documenting Scribe: Funmi Alonzo Provider For Whom Scribe is Documenting (Include Credential): Delbert Narvaez MD Scribe Attestation: I, Funmi Azari, scribed for Delbert Narvaez MD on 10/02/18 at 1506. Status of Scribe Document: Ready
[2018-10-02 14:03] LABS: ABS Basophils 0 10^3/ul (0-0.2); ABS Eosinophils 0.2 10^3/ul (0-0.6); ABS Lymphocytes 2.4 10^3/ul (1.0-4.8); ABS Monocytes 0.7 10^3/ul (0-0.8); ABS Neutrophils 2.8 10^3/ul (1.5-7.7); ABS Nucleated RBC 0 10^3/ul; Eosinophil % 2.8 %; Hematocrit 47 % (42-52); Hemoglobin 15.8 g/dl (14.0-18.0); Lymphocyte % 40.2 %; Mean Corpuscular HGB Conc 34 g/dl (31-36); Mean Corpuscular Hemoglobin 33 pg (27-31); Mean Corpuscular Volume 98 fL (80-94); Nucleated Red Blood Cells % 0.1; Platelet Count 203 10^3/ul (150-450); Red Blood Count 4.79 10^6/ul (4.00-5.40); Red Cell Distribution Width 13 % (10.5-15); White Blood Count 6.1 10^3/ul (3.5-10.8)
[2018-10-02 14:16] LABS: EGFR Non-African American 86.7 (>60)
[2018-10-02] MEDS ORDERED: amLODIPine TAB* 5 MG PO ONE (14:53)
[2018-10-02 15:26] VITALS: BP 141/85
== END 2018-10-02 15:10 | disposition home or self-care (01) ==
LOC: ED 12:06
DX: I10 Essential (primary) hypertension (principal); R07.89 Other chest pain; R42 Dizziness and giddiness; R00.1 Bradycardia, unspecified; E78.00 Pure hypercholesterolemia, unspecified; F17.210 Nicotine dependence, cigarettes, uncomplicated
CPT/HCPCS: 36415; 80053; 83605; 84484; 85025; 93005; 99282; A9270-GY

== ENCOUNTER 2019-08-30 09:26 | Observation (INO) | payer BC ==
[2019-08-30 09:54] LABS: ABS Eosinophils 0.2 10^3/ul (0-0.6); ABS Lymphocytes 1.4 10^3/ul (1.0-4.8); ABS Monocytes 1.3 10^3/ul (0-0.8); Eosinophil % 2.1 %; Hematocrit 48 % (42-52); Hemoglobin 16.6 g/dL (14.0-18.0); Lymphocyte % 14.2 %; Mean Corpuscular HGB Conc 34 g/dL (31-36); Mean Corpuscular Hemoglobin 33 pg (27-31); Mean Corpuscular Volume 96 fL (80-94); Nucleated Red Blood Cells % 0.1; Platelet Count 195 10^3/uL (150-450); Red Blood Count 5.01 10^6 /uL (4.18-5.48); Red Cell Distribution Width 13 % (10-15); White Blood Count 9.9 10^3/uL (3.5-10.8)
[2019-08-30 10:00] LABS: INR 1.02 (0.82-1.09)
[2019-08-30 10:10] LABS: Albumin 4.4 g/dL (3.2-5.2); Albumin/Globulin Ratio 1.5 (1-3); BUN/Creatinine Ratio 11.5 (8-20); EGFR Non-African American 80.2 (>60); Total Bilirubin 0.6 mg/dL (0.2-1.0); Total Protein 7.4 g/dL (6.4-8.9)
[2019-08-30 10:12] LABS: Troponin I 0.01 ng/mL (<0.04)
[2019-08-30] MEDS ORDERED: Albuterol/Ipratropium NEB.SOL* Albuterol 2.5 MG/Ipratropium 0.5 MG 3 ML INH ONE (10:28)
[2019-08-30 10:39] LABS: Influenza A Molecular NEGATIVE (Negative); Influenza B Molecular NEGATIVE (Negative)
--- NOTE | 2019-08-30 10:45 | ED ---
Palpitations / Dysrhythmia - HPI Summary HPI Summary: Patient is a 59 y/o M presenting to the ED for a chief complaint of chest discomfort. Patient is present with his . Patient states that the night of 08/28/19, he began to feel palpitations, nasal congestion, cough, and shortness of breath. Patient also describes that he had shortness of breath, fatigue, and dizziness on 08/30/19 when walking to check his email. Patients states that the patient had an episode of diarrhea. Patient denies bilateral LE swelling or pain. Patient had Azithromycin from a previous bacterial infection and took 3 pills in the last 2 days, most recently on 08/30/19, believing that he had another bacterial infection. Patient also took Mucinex for nasal congestion with some relief. Patient has a PMHx of atrial fibrillation and hypertension for which he takes amlodipine. Patient admits tobacco use; last used on 08/28/19. Patients mechanic foreman is Dr. Trevin Fraser and his PCP is Dr. Perfecto Cosme. - History of Current Complaint Chief Complaint: EDDysrhythmPalp Time Seen by Provider: 08/30/19 09:45 Hx Obtained From: Patient, Family/Learning Support Specialist - Onset/Duration: Sudden Onset, Lasting Days - Since 08/28/19, Still Present Timing: Constant Severity Initially: Moderate Severity Currently: Moderate Character: Irregular Aggravating: Nothing Alleviating: Nothing Associated Signs & Symptoms: Chest Pain - Chest discomfort, Shortness of Breath - Allergy/Home Medications Allergies/Adverse Reactions: Allergies Allergy/AdvReac Type Severity Reaction Status Date / Time No Known Allergies Allergy Verified 08/30/19 10:34 Home Medications: Home Medications Indapamide TAB* [Lozol TAB*] 1.25 mg PO DAILY 08/30/19 [History Confirmed ] PMH/Surg Hx/FS Hx/Imm Hx Previously Healthy: Yes Endocrine/Hematology History: Denies: Hx Diabetes Cardiovascular History: Reports: Hx Angina, Hx Atrial Fibrillation, Hx Coronary Artery Disease, Hx Hypercholesterolemia - Controlled with medication., Hx Hypertension, Other Cardiovascular Problems/Disorders - CATH 2004 & 2008 Denies: Hx Myocardial Infarction, Hx Pacemaker/ICD, Hx Valvular Heart Disease Respiratory History: Reports: Other Respiratory Problems/Disorders - SMOKER Denies: Hx Asthma, Hx Chronic Obstructive Pulmonary Disease (COPD) Sensory History: Denies: Hx Contacts or Glasses, Hx Legally Blind, Hx Deafness, Hx Hearing Aid Opthamlomology History: Denies: Hx Contacts or Glasses, Hx Legally Blind EENT History: Denies: Hx Deafness Psychiatric History: Denies: Hx Anxiety, Hx Depression, Hx Panic Disorder - Surgical History Surgical History: Yes Surgery Procedure, Year, and Place: TONSILECTOMY A CHILD,. 2006 HEART CATHERIZATION(NO STENTS), [facility] [place]. [place] [facility]ATHER[place]ATION (NO STENTS), [facility] Anesthesia Reactions: No - LOCAL WITH CATHERIZATIONS Infectious Disease History: No Infectious Disease History: Denies: Traveled Outside the US in Last 30 Days - Family History Known Family History: Positive: Cardiac Disease, Other - No family history of malignant hyperthermia or anesthesia reaction. Family History: No family history of malignant hyperthermia or anesthesia reaction. - Social History Occupation: Employed Full-time Lives: With Family Alcohol Use: Daily Hx Substance Use: No Substance Use Type: Reports: None Hx Tobacco Use: Yes Smoking Status (MU): Light Every Day Tobacco Smoker Type: Cigarettes Amount Used/How Often: 5-6 Length of Time of Smoking/Using Tobacco: 40 YEARS Have You Smoked in the Last Year: Yes Review of Systems Positive: Fatigue Positive: Other - Positive nasal congestion Positive: Palpitations, Chest Pain - Chest discomfort Positive: Shortness Of Breath, Cough Positive: Diarrhea Negative: Myalgia - Bilateral LE, Edema - Bilateral LE Neurological: Other - Positive dizziness All Other Systems Reviewed And Are Negative: Yes Physical Exam - Summary Physical Exam Summary: Appearance: The patient is well-nourished in no acute distress and in no acute pain. Skin: The skin is warm and dry, and skin color reflects adequate perfusion. HEENT: The head is normocephalic and atraumatic. The pupils are equal and reactive. The conjunctivae are clear and without drainage. Nares are patent and without drainage. Mouth reveals moist mucous membranes, and the throat is without erythema and exudate. The external ears are intact. The ear canals are patent and without drainage. The tympanic membranes are intact. Neck: The neck is supple with full range of motion and non-tender. There are no carotid bruits. There is no neck vein distension. Respiratory: Chest is non-tender. Breath sounds are symmetrical and equal. Diffuse inspiratory and expiratory wheezes. Cardiovascular: There is no murmur or rub auscultated. There is no peripheral edema and pulses are symmetrical and equal. Irregularly irregular tachycardia. Abdomen: The abdomen is soft and non-tender. There are normal bowel sounds heard in all four quadrants and there is no organomegaly palpated. Musculoskeletal: There is no back tenderness noted. Extremities are non-tender with full range of motion. There is good capillary refill. There is no peripheral edema or calf tenderness elicited. Neurological: Patient is alert and oriented to person, place and time. The patient has symmetrical motor strength in all four extremities. Cranial nerves are grossly intact. Deep tendon reflexes are symmetrical and equal in all four extremities. Psychiatric: The patient has an appropriate affect and does not exhibit any anxiety or depression. Triage Information Reviewed: Yes Vital Signs On Initial Exam: Initial Vitals Temp Pulse Resp BP Pulse Ox 97.0 F 124 18 143/83 96 08/30/19 09:35 08/30/19 09:35 08/30/19 09:35 08/30/19 09:35 08/30/19 09:35 Vital Signs Reviewed: Yes Procedures - Sedation Patient Received Moderate/Deep Sedation with Procedure: No Diagnostics - Vital Signs Vital Signs Temp Pulse Resp BP Pulse Ox 08/30/19 09:35 97.0 F 124 18 143/83 96 - Laboratory Lab Results: Lab Results 08/30/19 08/30/19 08/30/19 Range/Units 09:45 09:45 09:45 WBC 9.9 (3.5-10.8) 10^3/uL RBC 5.01 (4.18-5.48) 10^6 /uL Hgb 16.6 (14.0-18.0) g/dL Hct 48 (42-52) % MCV 96 H (80-94) fL MCH 33 H (27-31) pg MCHC 34 (31-36) g/dL RDW 13 (10-15) % Plt Count 195 (150-450) 10^3/uL MPV 9.0 (7.4-10.4) fL Neut % (Auto) 70.5 % Lymph % (Auto) 14.2 % [place] % (Auto) 12.8 % Eos % (Auto) 2.1 % Baso % (Auto) 0.4 % Absolute Neuts (auto) 7.0 (1.5-7.7) 10^3/ul Absolute Lymphs (auto) 1.4 (1.0-4.8) 10^3/ul Absolute Monos (auto) 1.3 H (0-0.8) 10^3/ul Absolute Eos (auto) 0.2 (0-0.6) 10^3/ul Absolute Basos (auto) 0.0 (0-0.2) 10^3/ul Absolute Nucleated RBC 0.0 10^3/ul Nucleated RBC % 0.1 INR (Anticoag Therapy) 1.02 (0.82-1.09) Sodium 139 (135-145) mmol/L Potassium 4.0 (3.5-5.0) mmol/L Chloride 106 (101-111) mmol/L Carbon Dioxide 25 (22-32) mmol/L Anion Gap 8 (2-11) mmol/L BUN 11 (6-24) mg/dL Creatinine 0.96 (0.67-1.17) mg/dL Est GFR ( Amer) 97.0 (>60) Est GFR (Non-Af Amer) 80.2 (>60) BUN/Creatinine Ratio 11.5 (8-20) Glucose 132 H (70-100) mg/dL Calcium 10.0 (8.6-10.3) mg/dL Total Bilirubin 0.60 (0.2-1.0) mg/dL AST 16 (13-39) U/L ALT 25 (7-52) U/L Alkaline Phosphatase 57 (34-104) U/L Troponin I 0.01 (<0.04) ng/mL Total Protein 7.4 (6.4-8.9) g/dL Albumin 4.4 (3.2-5.2) g/dL Globulin 3.0 (2-4) g/dL Albumin/Globulin Ratio 1.5 (1-3) Influenza A (Rapid) (Negative) Influenza B (Rapid) (Negative) 08/30/19 Range/Units 09:45 WBC (3.5-10.8) 10^3/uL RBC (4.18-5.48) 10^6 /uL Hgb (14.0-18.0) g/dL Hct (42-52) % MCV (80-94) fL MCH (27-31) pg MCHC (31-36) g/dL RDW (10-15) % Plt Count (150-450) 10^3/uL MPV (7.4-10.4) fL Neut % (Auto) % Lymph % (Auto) % [place] % (Auto) % Eos % (Auto) % Baso % (Auto) % Absolute Neuts (auto) (1.5-7.7) 10^3/ul Absolute Lymphs (auto) (1.0-4.8) 10^3/ul Absolute Monos (auto) (0-0.8) 10^3/ul Absolute Eos (auto) (0-0.6) 10^3/ul Absolute Basos (auto) (0-0.2) 10^3/ul Absolute Nucleated RBC 10^3/ul Nucleated RBC % INR (Anticoag Therapy) (0.82-1.09) Sodium (135-145) mmol/L Potassium (3.5-5.0) mmol/L Chloride (101-111) mmol/L Carbon Dioxide (22-32) mmol/L Anion Gap (2-11) mmol/L BUN (6-24) mg/dL Creatinine (0.67-1.17) mg/dL Est GFR ( Amer) (>60) Est GFR (Non-Af Amer) (>60) BUN/Creatinine Ratio (8-20) Glucose (70-100) mg/dL Calcium (8.6-10.3) mg/dL Total Bilirubin (0.2-1.0) mg/dL AST (13-39) U/L ALT (7-52) U/L Alkaline Phosphatase (34-104) U/L Troponin I (<0.04) ng/mL Total Protein (6.4-8.9) g/dL Albumin (3.2-5.2) g/dL Globulin (2-4) g/dL Albumin/Globulin Ratio (1-3) Influenza A (Rapid) Negative (Negative) Influenza B (Rapid) Negative (Negative) Result Diagrams: 08/30/19 09:45 08/30/19 09:45 Lab Statement: Any lab studies that have been ordered have been reviewed, and results considered in the medical decision making process. - Radiology Chest X-ray Radiology Interpretation Completed By: Radiologist Summary of Radiographic Findings: Chest X-ray IMPRESSION: No acute cardiopulmonary process by radiograph. Reviewed by ED physician. - EKG 10:27 Cardiac Rate: Other Rate - 136 BPM EKG Rhythm: Atrial Fibrillation ST Segment: Normal Ectopy: None Summary of EKG Findings: EKG at 10:27 shows 136 BPM with atrial fibrillation and rapid ventricular response. Reviewed and interpreted by ED physician. Course/Dx - Course Course Of Treatment: Mr. Aggarwal presented concerned that he was getting some signs of infection. He has been very weak for several days. Today he got short of breath even trying to walk a short distance and came to the emergency department. He does have palpitations. He has a history of having atrial fibrillation but is not on a blood thinner. On arrival his heart rate is elevated in the 120 range and irregular. On the monitor it looks like atrial fibrillation. He's having wheezes on exam and his pulse ox is running in the low 90s on a couple liters of oxygen. He was given nebulizer to see if hypoxia is contributing to his elevated heart rate and reported significant improvement in his breathing but he remained in atrial fibrillation with a mildly rapid ventricular response. At that point he was given some Cardizem which worked quite well for his heart rate but he began to fairly quickly speed up again and a drip was started. I spoke with of the hospitalist service about admission for further workup. - Diagnoses Provider Diagnoses: COPD exacerbation, Atrial fibrillation with RVR - Physician Notifications Discussed Care Of Patient With: Nohemi Winter Time Discussed With Above Provider: 14:00 - At 14:00, Dr. Nohemi Winter agrees to admit the patient to [facility] [place] with a diagnosis of CPD exacerbation and atrial fibrillation with RVR. Instructed by Provider To: Admit As Inpatient - Critical Care Time Critical Care Time: 30-74 min Discharge ED - Sign-Out/Discharge Documenting (check all that apply): Patient Departure - Admit - Discharge Plan Condition: Stable Disposition: ADMITTED TO [facility] Referrals: Perfecto Cosme MD [Primary Care Provider] - - Billing Disposition and Condition Condition: STABLE Disposition: Admitted to [facility] - Attestation Statements Document Initiated by Scribe: Yes Documenting Scribe: Lauren Armstrong Provider For Whom Scribe is Documenting (Include Credential): Geovanni Ceballos MD Scribe Attestation: I, Lauren Armstrong, scribed for Geovanni Ceballos MD on 11/03/19 at 1448. Scribe Documentation Reviewed: Yes Provider Attestation: The documentation as recorded by the scribe, Lauren Armstrong accurately reflects the service I personally performed and the decisions made by me, Geovanni Ceballos MD Status of Scribe Document: Viewed
[2019-08-30] MEDS ORDERED: Diltiazem IV push/loading dose 5 MG/ML 5 ML vial (25 mg) IV SLOW PU ONE (11:28)
[2019-08-30] MEDS ORDERED: Diltiazem IV BAG* D5W Premix 125 MG/125 ML BAG IV ONE (12:13)
[2019-08-30] MEDS ORDERED: NS 0.9% 1000 ML** 1,000 ML IV.FLUID IV ONE (14:06)
[2019-08-30] MEDS ORDERED: Ondansetron INJ* 2 MG/ML VIAL IV PRN (14:07)
[2019-08-30] MEDS ORDERED: Acetaminophen TAB* 325 MG PO PRN (14:14)
--- NOTE | 2019-08-30 14:18 | ED ---
Progress - Progress Note Progress Note: US IV Ultrasound Guided Peripheral IV Procedure Note Indication: Unable to obtain adequate IV access Skin Prep:Chlorhexidine Sterile Prep (allowed to dry for thirty seconds) Sterility: Gloves Insertion: Appropriate time out was taken. Ultrasound guidance was utilized for vein selection, to document selected vessel patency and real time ultrasound visualization of vascular needle entry into venous lumen. Insertion Site:L AC vein Type of catheter: 18 gauge catheter Blood return:yes Saline lock: yes Post Procedure: Estimated blood loss: minimal Course/Dx - Diagnoses Provider Diagnoses: COPD exacerbation, Atrial fibrillation with RVR - Provider Notifications Time Discussed With Above Provider: 14:00 - At 14:00, Dr. Nohemi Winter agrees to admit the patient to [facility] with a diagnosis of CPD exacerbation and atrial fibrillation with RVR. Instructed by Provider To: Admit As Inpatient Discharge ED - Sign-Out/Discharge Documenting (check all that apply): Patient Departure - Discharge Plan Condition: Stable Disposition: ADMITTED TO [facility] Referrals: Perfecto Cosme MD [Primary Care Provider] - - Billing Disposition and Condition Condition: STABLE Disposition: Admitted to [facility]
[2019-08-30] MEDS ORDERED: Apixaban* 5 MG TAB PO ONE (14:41)
[2019-08-30] MEDS: guaiFENesin/CODIENE 100mg/10mg 5 ML UDC PO PRN (16:52)
[2019-08-30] MEDS ORDERED: Metoprolol Tartrate TAB* 25 MG PO ONE (18:02)
--- NOTE | 2019-08-30 20:13 | HP ---
CC: Dr. Cosme; Dr. Fraser; Dr. Montilla * ADMISSION HISTORY AND PHYSICAL: DATE OF ADMISSION: 08/30/19 PRIMARY CARE PROVIDER: Dr. Cosme. AUTOMOBILE TESTER: Dr. Fraser. ATTENDING FOR THIS ADMISSION: Dr. Winslow.* (DICTATED BY GILL DE ANDA, ELY) CHIEF COMPLAINT: Palpitations, nausea, vomiting, and cough. HISTORY OF PRESENT ILLNESS: Mr. Aggarwal is a very pleasant 59-year-old male patient with a past medical history significant for paroxysmal AFib, hypertension, hyperlipidemia, and GERD, who presented to the emergency department today with complaints of generalized cough, nausea, vomiting, and diarrhea since Saturday. The patient states he has had what he thought was bronchitis for the past week and then progressed to also nausea and vomiting over the weekend. Then, he noticed that this morning when his cough became worse every time he had what he described as fits of coughing, he started to have palpitations. The patient has had known history of paroxysmal AFib for the last several years and felt that as his cough was increasing in severity he began to have palpitations probably throughout the night last night and then more specifically into the morning. The patient came to the emergency department for evaluation and was noted to be in atrial fibrillation with rapid ventricular response with a rate of 130. The patient was given Cardizem in the emergency department. He was given a bolus initially of 25 mg IV push and then was started on a continuous drip, which is now running at 10 mL per minute. The patient did not convert his rhythm. His rate did slow down somewhat to the high 90s to low 100s. The patient was less symptomatic, although he is still coughing and complaining of some decreased appetite and nausea. Hospitalists were then requested to admit the patient. PAST MEDICAL HISTORY: 1. Paroxysmal AFib. 2. Hypertension. 3. Hyperlipidemia. 4. GERD. PAST SURGICAL HISTORY: 1. Tonsillectomy as a child. 2. Cardiac catheterization x2. 3. Knee surgery. MEDICATIONS: His home medications include: 1. Indapamide 1.25 mg p.o. daily. 2. Omeprazole 20 mg p.o. daily. 3. Metoprolol succinate XL 50 mg p.o. daily. 4. Ibuprofen 600 mg q.8 hours as needed. 5. Aspirin 81 mg daily. 6. Amlodipine 5 mg daily. 7. Simvastatin 20 mg in the evening. ALLERGIES: He has no known drug allergies. FAMILY HISTORY: Father at 56 of coronary artery disease. Mother at age 74 of cancer. SOCIAL HISTORY: The patient is a light everyday smoker times many years. Denies any alcohol use. Denies any drug use. He does work full-time as a physical fitness teacher. He is present here with his at the bedside who is his health care proxy. REVIEW OF SYSTEMS: The patient states some subjective fever and chills while he was at home. Currently, has some intermittent nausea and does feel very fatigued and describes himself as very dry. Did have episodes of diarrhea at home, but none since he has been in the emergency department. No abdominal pain. No urinary complaints. No chest pain. At this time, his palpitations have resolved and no further constitutional complaints. PHYSICAL EXAMINATION GENERAL: The patient is awake and alert, well appearing, no acute distress. VITAL SIGNS: Heart rate variable between 94 and 108, respiratory rate is 17, O2 saturation 93% on room air, temperature 97.0, blood pressure of 132/84. HEENT: The patient is atraumatic, normocephalic. PERRLA. Nonicteric sclerae. Oral mucosa is dry; lips especially do appear very dry. Tongue is midline. NECK: Supple. Nontender. No JVD. No carotid bruits auscultated. LUNGS: Wheezy bilaterally with no appreciable rhonchi or rales. CARDIOVASCULAR: S1, S2 present. No murmurs, gallops, or rubs noted. Rate is irregular and mildly tachycardic. ABDOMEN: Soft, nontender, nondistended. Positive bowel sounds in all 4 quadrants. : Deferred. EXTREMITIES: There is no clubbing, no cyanosis, and no edema. +2 distal pulses palpable. He has full range of motion. Gross motor and sensation are intact and steady gait. NEUROLOGIC: Grossly intact with no focal deficits. SKIN: Warm and dry. Turgor is somewhat poor. PSYCHIATRIC: Cooperative and appropriate. DIAGNOSTIC STUDIES/LAB DATA: WBCs 9.9, RBCs 5.01, hemoglobin 16.6, hematocrit 48, MCV 96, MCH 33, platelets 195. Sodium 139, potassium 4.0, chloride 106, CO2 of 25, BUN 11, creatinine 0.96, GFR 80.2, BUN-creatinine ratio 11.5, glucose 132. Calcium 10.0. Bilirubin 0.60, AST 16, ALT 25, alk phos 57. Troponin is negative at 0.01 and 0.01. Total protein 7.4. Albumin of 4.4, globulin 3.0, albumin-globulin ratio 1.5. Influenza A and B are negative. INR is 1.02. Chest x-ray shows no acute cardiopulmonary process. EKG at 10:27 this morning shows AFib with a rate of 136. IMPRESSION: Mr. Aggarwal is a 59-year-old male with a history of paroxysmal atrial fibrillation, who presents in the ED today with upper respiratory complaints and palpitations. 1. Atrial fibrillation with rapid ventricular rate. The patient has been on Cardizem drip for about 2 hours now and remains in atrial fibrillation, but the rate has improved. We will continue him on a Cardizem drip. I have reached out to Dr. Montilla of Cardiology who recommends that the patient remain on the Cardizem drip. We will give him a dose of Eliquis now and then continue him on 5 mg b.i.d. starting tonight. I have put in for an order for HODA cardioversion in the morning. If the patient does not spontaneously convert at sometime tonight, Dr. Fraser is on in the morning who is his regular compress machine operator and he will be able to cardiovert the patient tomorrow morning after he has had 3 doses of Eliquis on board. We will continue his metoprolol [address] Fraser can recommend if he wants to make any further changes in his medications for rate control thereafter. The patient's CHADS-VASc score is 1. He only scores for hypertension and he is only 59 years old. However, I do think that this episode was brought on by his acute respiratory illness and dehydration, so he is getting fluid bolused at this time in hopes to reverse some of the symptoms that may have precipitated his current rapid heart rate. 2. Upper respiratory illness. The patient's influenza is negative. He does not currently have a fever or white count, but he does have an appreciable wheeze and cough and generally feels some malaise. I will place him on guaifenesin with codeine. He did receive 1 albuterol treatment in the emergency department and he did feel better. Also, he does have small wheeze and we will try to stay away from too much albuterol given the rapid heart rate that he already has. His O2 saturation is adequate at this time, so he can get p.r.n. neb treatments, but we will carefully monitor the heart rate while he is getting them and again he can have guaifenesin with codeine as needed. He does not have a white count or a fever. He is getting hydrated with normal saline. He has gotten 1 bolus now and we will continue him on normal saline at 100 mL per hour after. 3. Hypertension. We will continue him on Norvasc and metoprolol. I will hold off on his indapamide, however. That is a thiazide diuretic and he is dry at this time, so we will hold his indapamide at this time. 4. Hyperlipidemia. Continue his statin. 5. Gastroesophageal reflux disease. Continue PPI. 6. DVT prophylaxis. He has been started on Eliquis and he can ambulate. 7. Diet. Regular diet as tolerated until midnight tonight and then n.p.o. after midnight in case the patient needs cardioversion in the morning. The rest of the patient's course will be determined by further diagnostics, laboratories, and any other input from any other providers or subspecialties as warranted during this admission. TIME SPENT: 65 minutes on admission planning, 50% of which was spent face-to- face with the patient and his explaining admission plan of care. Plan of care has been discussed with Dr. Winslow, the attending on this admission and also Dr. Montilla of Cardiology and they are in agreement with the plan. GILL DE ANDA, ELY [id number]/[facility] #: [id number] JESSICA
[2019-08-30] MEDS: Albuterol/Ipratropium NEB.SOL* Albuterol 2.5 MG/Ipratropium 0.5 MG 3 ML INH PRN (20:54)
[2019-08-30] MEDS ORDERED: Atorvastatin* 10 MG TAB PO SCH (21:00)
[2019-08-30] MEDS: Apixaban* 5 MG TAB PO SCH (21:10)
[2019-08-31] MEDS: Albuterol/Ipratropium NEB.SOL* Albuterol 2.5 MG/Ipratropium 0.5 MG 3 ML INH PRN ×2 (03:20→12:31)
[2019-08-31] MEDS: guaiFENesin/CODIENE 100mg/10mg 5 ML UDC PO PRN (06:42)
[2019-08-31 08:41] VITALS: BP 127/73
[2019-08-31] MEDS: Apixaban* 5 MG TAB PO SCH (08:42)
[2019-08-31] MEDS ORDERED: Pantoprazole TAB * 40 MG TAB PO SCH (09:00)
[2019-08-31] MEDS ORDERED: amLODIPine TAB* 5 MG PO SCH (09:00)
[2019-08-31] MEDS ORDERED: Aspirin EC TAB* 81 MG TAB.EC PO SCH (09:00)
[2019-08-31] MEDS ORDERED: Metoprolol Succinate XL TAB* 50 MG PO SCH (09:00)
[2019-08-31] MEDS ORDERED: Flecainide TAB* 100 MG PO SCH (11:00)
[2019-08-31] MEDS ORDERED: FLECAINIDE 50 MG PO SCH (11:00)
--- NOTE | 2019-08-31 13:33 | CONS ---
CC: Dr. Cosme; Dr. Trevin Fraser * CONSULTATION REPORT: DATE OF CONSULT: 08/31/19 ATTENDING PHYSICIAN: Dr. Trevin Fraser, Cardiology * (DICTATED BY MIGUE CHAVEZ NP) PRIMARY PHYSICIAN: Dr. Cosme PRIMARY MANAGER STARS: Dr. Trevin Fraser. CHIEF COMPLAINT: Wheezing, cough, nausea, vomiting, diarrhea, palpitations. HISTORY OF PRESENT ILLNESS: This is a pleasant 59-year-old male patient who follows Dr. Trevin Fraser of our practice due to notable history of paroxysmal AFib, on metoprolol and aspirin therapy, in addition to hypertension, hyperlipidemia, gastric reflux. The patient states he has been in his usual state of health. Historically, he will experience episodes of AFib which consist of palpitations 1 to 2 times a year. He states last episode prior to admission was a month ago while traveling to [place] when he noted an elevated heart rate and complaints of palpitations. Episode lasted 4 to 5 hours and resolved on its own. He reports compliance with medications. Historically, anxiety and emotional stress would provoke AFib. Apparently, for the past 4 to 5 days he has been having sinus congestion, cough, wheezing, intermittent, nausea, vomiting, diarrhea, thus he presented to [facility] for evaluation. While being evaluated in the emergency department, he was noted to be in AFib, RVR, rate 136. He was given IV Cardizem therapy and admitted to [address] [place] [address]. He converted to sinus rhythm at 05:33 p.m. on 08/30/19. He has been in sinus rhythm since. Decision was made to anticoagulate the patient with Eliquis therapy. He states he has not had any recurrent palpitations since conversion at 05:33 p.m. on 08/30/19. He reports chest pain with cough and inspiration. Denies chest pain with exertion. Denies dizziness, syncope, swelling in lower extremities. He is inquiring about antibiotic therapy for his upper respiratory infection. Last echocardiogram according to out records was in 2016; per report LVEF 55% to 60%, septal wall hypertrophy, mild left atrial dilatation. No aortic stenosis. Trace tricuspid insufficiency. Last ischemic evaluation was January 2017 via exercise nuclear stress test; per report the patient achieved 10.1 METS exercising for 8 minutes and 23 seconds. No ischemic ECG changes. Normal perfusion. Last cardiac catheterization was in 2010 at [facility]. Normal course per report from outpatient EHR. PAST MEDICAL HISTORY: 1. Hyperlipidemia. 2. Hypertension. 3. GERD. 4. Paroxysmal AFib. 5. Ongoing tobacco abuse. PAST SURGICAL HISTORY: Includes: 1. Tonsillectomy. 2. Cardiac catheterization in 2005 and 2010, normal course per report. 3. Knee surgery. ALLERGIES: No known drug allergies. Denies allergy to contrast dye or shellfish. FAMILY HISTORY: Father at the age of 56 due to complications from myocardial infarction. Otherwise noncontributory. SOCIAL HISTORY: The patient smokes 5 to 10 cigarettes a day. He is . Lives at home with his . He is employed as a teacher. Denies illegal drug use. REVIEW OF SYSTEMS: All systems have been reviewed, otherwise negative except as mentioned in HPI. PHYSICAL EXAM: Temperature 98, pulse 72, respirations 16, oxygenation 90% in room air, blood pressure 127/73. General: The patient is alert and oriented x3 , cooperative with exam, appears well-nourished, no apparent distress. HEENT: Head is atraumatic, normocephalic. Oral mucosa is moist. Tongue is midline. Neck: Supple. Trachea midline. No JVD. No carotid bruits. Cardiac: Normal S1, S2. Regular rate, rhythm. No murmur, rub or gallop noted. Lungs are auscultated posteriorly. Diffuse inspiratory, expiratory wheezing noted throughout with harsh cough nonproductive. No evidence of retractions. /GI: Abdomen is soft, nontender, nondistended. Normoactive bowel sounds x4. Extremities: No pedal edema. No clubbing, no cyanosis. Peripheral Vascular: 2+ brachial and dorsalis pedis pulses palpated bilaterally and symmetrically. Skin: Intact. No evidence of jaundice, rashes, or lesions noted. DIAGNOSTIC STUDIES/LAB DATA: Blood work on 08/30/19: White count 9.9, hemoglobin 16.6, hematocrit 48, platelets 195. INR 1.0. Sodium 139, potassium 4.0, chloride 106, carbon dioxide 25, BUN 11, creatinine 0.96. Troponin negative x3. Influenza A and B are negative. ECG obtained 08/30/19, sinus rhythm at rate 87. No ST segment elevation or depression appreciated. ECG from 08/30/19 at 10:27, AFib, rate [address] segment depression. Chest x-ray per report 08/30/19, no acute cardiopulmonary process noted. ASSESSMENT AND PLAN: 1. History of paroxysmal atrial fibrillation; currently in sinus rhythm. The patient converted after IV diltiazem therapy. CHADS-VASc 1, however, the patient reports increased frequency of AF episodes. The patient had a 5 to 6 hour episode a month ago and episodes have been occurring 2 to 3 times a year per the patient. Decision had been made to discontinue aspirin therapy, initiate Eliquis 5 mg p.o. b.i.d. We will restart flecainide at 50 mg p.o. b.i.d. He was previously on flecainide in 2017, however, it was discontinued outpatient due to no reoccurrence of AF. We would recommend continuing metoprolol 50 mg a day. I discussed the role of anticoagulation with the patient including risks versus benefit. He is aware that his annual risk of stroke is approximately 1.3%, however, calculator could be under assessing his stroke risk given increased frequency of AF episodes. He is aware that risk of being on anticoagulation includes bleeding complications including intracranial hemorrhage. The patient is agreeable to proceeding. 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 It could not be unreasonable to reevaluate AF burden on flecainide therapy and if no reoccurrence given CHADS- VASc is 1, potentially discontinuing Eliquis on outpatient basis. We will follow up outpatient. We will discontinue aspirin therapy, now the patient will be starting direct oral anticoagulant. The patient will have close followup with our practice for reevaluation in 7 to 10 days. 2. History of hyperlipidemia, on statin therapy, goal LDL less than 100. 3. History of hypertension, blood pressure is normotensive on current medication therapy. 4. Complaints of upper respiratory tract infection, we will defer to primary team. 5. Disposition: Pending course. The patient is full code. Dr. Fraser has personally seen and examined the patient and agrees the above assessment plan. Thank you for this kind consultation. Any future questions or concerns, please do not hesitate to contact our service. MIGUE CHAVEZ NP [id number]/[facility] #: [id number] [facility]
--- NOTE | 2019-09-01 01:35 | DS ---
CC: Dr. Perfecto Cosme; Dr. Trevin Fraser.* DISCHARGE SUMMARY: DATE OF ADMISSION: 08/30/19 DATE OF DISCHARGE: 08/31/19 PRIMARY CARE PROVIDER: Dr. Perfecto Cosme. PLANS EXAMINER: Dr. Trevin Fraser. ATTENDING PHYSICIAN: Dr. Laura Dillard. * (DICTATED BY BILLIE ALEXANDRE NP) PRIMARY DIAGNOSES: 1. Atrial fibrillation with rapid ventricular response. 2. Bronchitis. SECONDARY DIAGNOSES: 1. Hypertension. 2. Hyperlipidemia. 3. Gastroesophageal reflux disease. STUDIES WHILE IN THE HOSPITAL: 1. EKG on 08/30/19 shows AFib with the rate of 136. 2. EKG on 08/30/19 shows normal sinus rhythm with a rate of 87. No ST changes. QTC 418. 3. Chest x-ray on 08/30/19 reads as no acute cardiopulmonary process by radiograph. CONSULTATIONS WHILE IN THE HOSPITAL: 1. Gina Muniz NP with Cardiology on 08/31/19. HISTORY OF PRESENT ILLNESS AND HOSPITAL COURSE: Mr. Aggarwal is a 59-year-old male with past medical history of paroxysmal atrial fibrillation, hypertension, hyperlipidemia, and GERD who presented to the emergency room on 08/30/19 with complaints of palpitations, nausea, vomiting, and cough. Please see the history and physical by Yodit Blankenship NP, for complete summary of the events leading up to this hospitalization. In short, the patient reported cough and upper respiratory symptoms for the past week, then progressing to nausea, vomiting, and diarrhea. The patient did note that after some fits of coughing, he began to have palpitations, and so he presented to the emergency room. In the emergency room, he was noted to be in rapid ventricular response with the rate of 130 and was given IV Cardizem and started on a Cardizem drip with good response in rate. The patient was admitted by the hospitalist service. He was started on Eliquis and the plan was for the patient to have a transesophageal cardioversion in the morning, although ultimately the patient did self convert to normal sinus rhythm overnight and so cardioversion this morning was canceled. The patient was seen by Gina Muniz NP from Cardiology today, who spoke with the patient and maybe planned to discontinue aspirin therapy and start Eliquis. He was also restarted on flecainide, which he had previously been on in the past. The patient was agreeable to these changes. She arranged for close followup as an outpatient and advised that the patient was stable from a cardiac perspective. Regarding his respiratory status , the patient did not meet sepsis criteria and was not requiring any oxygen, though was noted to have a significant cough with yellow sputum as well as some wheezing. He denied any history of COPD, though does admit to a 45-year smoking history and chest x-ray does appear to show some lung hyperinflation, so I think it is likely that the patient has COPD and this may represent a COPD exacerbation, although at this point I will treat this as bronchitis. The patient was agreeable to all medication changes. He reports feeling well and has been able to ambulate without difficulty or increased shortness of breath. On exam, he is alert and oriented x4. He has no focal neurological deficits. His heart has a regular rate and rhythm without murmurs, rubs or gallops. Lungs are diminished to auscultation with expiratory wheezing throughout. There is no edema. Physical exam is otherwise benign. DISCHARGE MEDICATIONS: New medications: 1. Eliquis 5 mg p.o. b.i.d. 2. Albuterol MDI 2 puffs q.4 hours p.r.n. shortness of breath, wheezing. 3. Doxycycline 100 mg p.o. b.i.d. x5 days. 4. Flecainide 50 mg p.o. b.i.d. 5. Prednisone taper x6 days (take 30 mg for 2 days, then 20 mg for 2 days, then 10 mg for 2 days). Continued medications: 1. Amlodipine 5 mg p.o. daily. 2. Indapamide 1.25 mg p.o. daily. 3. Metoprolol succinate 50 mg p.o. daily. 4. Omeprazole 20 mg p.o. daily. 5. Simvastatin 20 mg p.o. at bedtime. Discontinued medications: 1. Aspirin. 2. Ibuprofen. DISCHARGE PLAN: Mr. Aggarwal will be discharged home. Activity will be as tolerated. Diet will be heart healthy. Medications were noted above. Again, I do suspect that the patient has chronic obstructive pulmonary disease and that this may represent a chronic obstructive pulmonary disease exacerbation, though at this point, I will treat this as chronic obstructive pulmonary disease /bronchitis and I therefore have put him on 5 days of doxycycline as well as a short prednisone taper. The patient does report that he has an albuterol inhaler at home, but does not have any refills, so I have sent in a refill of this. Per Cardiology recommendations, the patient has been placed on flecainide and Eliquis. Aspirin has been discontinued with the initiation of Eliquis. The patient also should stop taking ibuprofen due to potential cardiac risk. He can continue his other usual medications as noted above. He will need to follow up with Dr. Evelio rhoades as an outpatient and he has an appointment on 08/30/19 at 9:30 a.m. He additionally will need to follow up with his primary care provider in the next 4 to 7 days. I would recommend pulmonary function testing when the patient has recovered from this acute illness in order to rule in or rule out a diagnosis of chronic obstructive pulmonary disease. He has been advised to return to the emergency room or the nearest hospital for any worsening of symptoms, shortness of breath, lightheadedness, dizziness, chest discomfort, high fevers, chills, night sweats , loss of consciousness, or any other worrisome signs or symptoms. DISCHARGE CONDITION: Stable. DISCHARGE DISPOSITION: Home. This is a summarized report of a complex medical history and hospital stay. For further details, please see the entire medical record. TIME SPENT: Approximately 45 minutes were spent on this discharge. BILLIE ALEXANDRE NP [id number]/[facility] #: [id number] JESSICA
== END 2019-08-31 13:20 | disposition home or self-care (01) ==
LOC: ED 09:26 → MEDTELE 14:07
PROVIDERS: ADMIT Internal Medicine; ATTEND Internal Medicine
DX: I48.20 Chronic atrial fibrillation, unspecified (principal); J40 Bronchitis, not specified as acute or chronic; I10 Essential (primary) hypertension; E78.5 Hyperlipidemia, unspecified; K21.9 Gastro-esophageal reflux disease without esophagitis; Z79.899 Other long term (current) drug therapy; Z79.82 Long term (current) use of aspirin; E78.00 Pure hypercholesterolemia, unspecified; I25.10 Atherosclerotic heart disease of native coronary artery without angina pectoris; F17.210 Nicotine dependence, cigarettes, uncomplicated
CPT/HCPCS: 36415; 71046; 80053; 84484; 85025; 85610; 93005; 94640; 96361; 96374; 96375; 99285; A9270-GY; G0378; J3490